=== PATIENT | male | born 1960 | race Caucasian/White ===

== ENCOUNTER 2023-08-14 06:49 | Inpatient (IN) ==
--- NOTE | 2023-07-27 16:32 | PAT Medication Instructions ---
Medication Instructions Date of Service July 27, 2023 Home Medications amlodipine 10 mg tablet 10 mg PO QAM dextroamphetamine-amphetamine ER 15 mg 24hr capsule,extend release 15 mg PO QAM gabapentin 300 mg capsule 900 mg PO TID lisinopril 40 mg tablet 40 mg PO QAM omeprazole 20 mg capsule,delayed release 20 mg PO QAM pravastatin 20 mg tablet 20 mg PO HS tamsulosin 0.4 mg capsule 0.8 mg PO QAM testosterone 100 mg/mL intramuscular suspension 200 mg IM UD Continue as directed testosterone 100 mg/mL intramuscular suspension 200 mg IM UD DO NOT take the morning of surgery dextroamphetamine-amphetamine ER 15 mg 24hr capsule,extend release 15 mg PO QAM lisinopril 40 mg tablet 40 mg PO QAM Take morning of surgery With a small sip of water, OTHERWISE NOTHING TO EAT OR DRINK AFTER MIDNIGHT: amlodipine 10 mg tablet 10 mg PO QAM gabapentin 300 mg capsule 900 mg PO TID omeprazole 20 mg capsule,delayed release 20 mg PO QAM tamsulosin 0.4 mg capsule 0.8 mg PO QAM Take evening before surgery gabapentin 300 mg capsule 900 mg PO TID pravastatin 20 mg tablet 20 mg PO HS Other Notes If you have any questions please call us at [phone] or [phone] or [phone] or [phone]
--- NOTE | 2023-07-31 12:47 | Anesthesiology Consultation ---
Date of Service July 31, 2023 Assessment & Plan (1) Encounter for pre-operative examination: Infectious disease screening: Per assessment on 07/31/23: No known infectious disease contacts or current infectious disease symptoms. No noted Covid positive test result in past 90 days. Chart Review Chart Review: Acceptable Risk for Surgery and Patient seen in Pre Admission Testing Teaching & Discussion Pre-Anesthesia Teaching/Discussion Notes: Instructed NPO after midnight before surgery,except medications with 15 cc of water. Medication instructions provided according to the PAT guidelines. History Surgery Operation Date: 08/14/23 07:45 Proposed Procedures p L2-L5 Decompression and Fusion with Spinal Cord Monitoring - Franck Nicholson DO Height/Weight Height: 5 ft 11 in Weight: 118.8 kg Allergies Allergy/AdvReac Type Severity Reaction Status Date / Time No Known Allergies Allergy Verified 07/24/23 13:01 Medications Home Medications Medication Instructions Recorded Confirmed Last Taken amlodipine 10 mg tablet 10 mg PO QAM 07/24/23 07/24/23 Unknown dextroamphetamine-amphetamine ER 15 mg PO QAM 07/24/23 07/24/23 Unknown 15 mg 24hr capsule,extend release gabapentin 300 mg capsule 900 mg PO TID 07/24/23 07/24/23 Unknown lisinopril 40 mg tablet 40 mg PO QAM 07/24/23 07/24/23 Unknown omeprazole 20 mg capsule,delayed 20 mg PO QAM 07/24/23 07/24/23 Unknown release pravastatin 20 mg tablet 20 mg PO HS 07/24/23 07/24/23 Unknown tamsulosin 0.4 mg capsule 0.8 mg PO QAM 07/24/23 07/24/23 Unknown testosterone 100 mg/mL 200 mg IM UD 07/24/23 07/24/23 Unknown intramuscular suspension Past Medical History Medical History ADHD GERD (gastroesophageal reflux disease) Hyperlipidemia Hypertension Exercise / Class Metabolic Activity II 4-5 Yardwork/Stairs/Walk up hill (one FS (no CP, no SOB)) Past Surgical History Surgical History Fusion of spine L2-L4; x2 surgery History of cholecystectomy History of colonoscopy Past Anesthesia History No Hx of Anesthesia Complications and No Family Hx of Anesthesia Complications History of PONV No Hx of PONV Social History Smoking Status: Never smoker Do You Dip or Chew Tobacco: Yes (1 can/day- advised none DOS) Hx Alcohol Use: Yes alcohol intake frequency: holidays/special occasions only Hx Substance Use: No substance use type: does not use Review of Systems Patient denies chest pain, shortness of breath, dyspnea on exertion, fever, chills, cough, wheezing, palpitations. Physical Exam Vital Signs VITALS BP 118/70 P 102 TEMP 98.3 SP02 95%RA RESP 18 PHYSICAL Mildly decreased cervical extension range of motion. Full TMJ range of motion. TMD 3 finger breaths Mallampati Score 3 Dentition: upper/lower dentures Lungs: clear throughout to auscultation Cardiac: regular rate and rhythm, no murmurs noted Spine: normal Carotid arteries: negative bruit Extremities: no LE edema Large, thin jang- advised patient recommendation to clean/trim jang short prior to surgery from anesthesia perspective- patient refusing. Reviewed with Dr. Alarcon- patient advised that ultimate decision regarding jang management to be made by anesthesiologist DOS. Lab Results Anesthesia Preop Results Results Anesthesia Widget: WBC 7.96 K/ul (4.8-10.8) 07/31/23 Hgb 16.3 g/dl (14.0-18.0) 07/31/23 Hct 46.4 % (42.0-52.0) 07/31/23 Plt 253 K/uL (130-400) 07/31/23 Na 136 mmol/L (136-145) 07/31/23 K 4.1 mmol/L (3.5-5.1) 07/31/23 Cl 104 mmol/L (98-107) 07/31/23 CO2 25 mmol/L (21-32) 07/31/23 BUN 16 mg/dl (6-23) 07/31/23 Creat 1.15 mg/dl (0.6-1.4) 07/31/23 Glucose Level 107 mg/dl (70-99(Fasting)) H 07/31/23 PT 10.6 Seconds (9.0-12.0) 07/31/23 PTT 29.0 Seconds (21.0-31.0) 07/31/23 INR 1.0 (0.9-1.1) 07/31/23 Urine Color Yellow 07/31/23 Urine Appearance Clear (Clear) 07/31/23 Urine pH 6.0 (4.5-7.5) 07/31/23 Urine Specific Darby 1.019 (1.000-1.030) 07/31/23 Urine Protein Negative (Negative) 07/31/23 Urine Glucose (UA) Negative (Negative) 07/31/23 Urine Ketones Negative (Negative) 07/31/23 Urine Blood Negative (Negative) 07/31/23 Urine Nitrite Negative (Negative) 07/31/23 Urine Bilirubin Negative (Negative) 07/31/23 Urine Urobilinogen Negative (Negative) 07/31/23 Urine Leukocyte Esterase Negative (Negative) 07/31/23 Blood Type A Positive 07/31/23 Antibody Screen NEGATIVE 07/31/23 Testing Electrocardiogram Date: 07/31/23 ST at 101bpm. "Otherwise normal ECG" Chest X-Ray Date: 07/31/23 FINDINGS: Lung volumes are normal. Lungs are clear. There is no pneumothorax or pleural effusion. Cardiac size is normal. Mediastinal contours are normal. There is no evidence for pulmonary edema. IMPRESSION: No acute cardiopulmonary findings.
[~2023-08-14 06:49] MED LIST: ACETAMINOPHEN 500 MG TAB PO SCH; CeleBREX 200 MG CAP PO SCH; GABAPENTIN 600 MG DOSE PO SCH; LR 15ML/HR IV SCH; LR 60ML/HR IV SCH
[2023-08-14] MEDS ORDERED: LIDOCAINE 2% 2 ML VIAL/AMP(20MG/ML) INFIL ONE (08:25)
[2023-08-14] MEDS ORDERED: ROCURONIUM BROMIDE 10 MG/ML 5 ML VIAL IV ONE ×3 (08:25→11:55)
[2023-08-14] MEDS ORDERED: PROPOFOL IV EMULSION 10 MG/ML 20 ML VIAL IV ONE (08:25)
[2023-08-14] MEDS ORDERED: fentaNYL citrate PF 100 MCG/2 ML VIAL ONE ×2 (08:25→11:14)
[2023-08-14] MEDS ORDERED: ONDANSETRON INJ 2 MG/ML 2 ML VIAL ONE (08:25)
[2023-08-14] MEDS ORDERED: MIDAZOLAM HCL 1 MG/ML 2ML VIAL ONE (08:25)
[2023-08-14] MEDS ORDERED: DEXAMETHASONE SOD INJ 4 MG/ML VIAL ONE (08:25)
--- NOTE | 2023-08-14 09:03 | History & Physical Bridge Note ---
Date of Service August 14, 2023 History & Physical Bridge Note I have examined the patient, reviewed the History & Physical and in the interval since the performance of the History & Physical I have noted the following changes of clinical significance: no changes noted
--- NOTE | 2023-08-14 09:04 | History & Physical Report ---
Date of Service August 14, 2023 Assessment & Plan (1) Neurogenic claudication due to lumbar spinal stenosis: Plan: L2-L5 decompression and fusion History of Present Illness Chief Complaint: Back and bilateral leg pain Primary Care Provider: Patricia Hernandez This is a 63-year-old male presents with chronic persistent back and bilateral leg pain after failing extensive course of nonoperative care is here for surgical invention. Allergies Allergy/AdvReac Type Severity Reaction Status Date / Time No Known Allergies Allergy Verified 08/14/23 07:44 Home Medications Medication Instructions Recorded Confirmed Type amlodipine 10 mg tablet 10 mg PO QAM 07/24/23 08/14/23 History dextroamphetamine-amphetamine ER 15 mg PO QAM 07/24/23 08/14/23 History 15 mg 24hr capsule,extend release (Adderall XR) gabapentin 300 mg capsule 900 mg PO TID 07/24/23 08/14/23 History lisinopril 40 mg tablet 40 mg PO QAM 07/24/23 08/14/23 History omeprazole 20 mg capsule,delayed 20 mg PO QAM 07/24/23 08/14/23 History release pravastatin 20 mg tablet 20 mg PO HS 07/24/23 08/14/23 History tamsulosin 0.4 mg capsule 0.8 mg PO QAM 07/24/23 08/14/23 History testosterone 100 mg/mL 200 mg IM UD 07/24/23 08/14/23 History intramuscular suspension Past Med/Surg History Medical History ADHD GERD (gastroesophageal reflux disease) Hyperlipidemia Hypertension Surgical History Fusion of spine L2-L4; x2 surgery History of cholecystectomy History of colonoscopy Social History Smoking Status: Never smoker Tobacco Type: Smokeless Tobacco (Dip or Chew) Second Hand Exposure: No; Do You Dip or Chew Tobacco: Yes (1 can/day- advised none DOS); Tobacco Cessation Education Requested by Patient: No Hx Alcohol Use: Yes Hx Substance Use: No Preferred Language: Pashto 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
[2023-08-14] MEDS ORDERED: ceFAZolin 330 MG/ML 1 GM VIAL ONE (09:16)
[2023-08-14] MEDS ORDERED: BUPIVACAINE/EPINEPHRINE 0.25% 1:200,000 30 ML VIAL ONE (09:17)
[2023-08-14] MEDS ORDERED: ATROPINE SULFATE 0.1 MG/ML 10ML SYR IV PRN (09:29)
[2023-08-14] MEDS ORDERED: ePHEDrine sulfate 50 MG/ML AMP IV PRN (09:29)
[2023-08-14] MEDS ORDERED: ONDANSETRON INJ 2 MG/ML 2 ML VIAL IV PRN ×2 (09:29→14:22)
[2023-08-14] MEDS: ceFAZolin 2000MG 2,000 MG/15 ML SYR IV SCH ×3 (09:36→17:52)
[2023-08-14] MEDS ORDERED: SUCCINYLCHOLINE CHLORIDE 20 MG/ML 10 ML VIAL IV ONE (10:46)
[2023-08-14] MEDS ORDERED: HYDROmorphone INJ 2 MG/ML SYR/VIAL ONE (12:15)
[2023-08-14] MEDS ORDERED: FLOSEAL HEMOSTATIC MATRIX 10ML TOP ONE (12:44)
[2023-08-14] MEDS ORDERED: SUGAMMADEX SODIUM 200 MG/2 ML VIAL IV ONE (12:45)
--- NOTE | 2023-08-14 12:53 | Operative Report ---
Post Operative Report Pre & Post Diagnosis Operation Date: 08/14/23 08:55 Pre-Op Diagnosis: Lumbar spinal stenosis with neurogenic claudication Lumbar spondylolisthesis L4-5 Morbid obesity Post-Op Diagnosis: Same I identified the patient and participated in the time-out.: Yes Procedure Operation Date: 08/14/23 08:55 Actual Procedures #1 lumbar decompression bilateral medial facetectomies and foraminotomies L1-L2, L2-L3, L3-L4 and L4-5. #2 posterior spinal fusion L2-L5. #3 placement closely posterior segmental instrumentation L2-L5. #4 interbody fusion L2-L3, L3-L4 and L4-5. #5 placement spiral 10 x 26 mm at L2-L3, 13 x 26 mm at L3-L4 and 15 x 26 mm at L4-L5 x2. #6 placement locally harvested morselized autograft and posterior gutters. #7 placement of I factor interbody space and infuse collagen sponge combined with magnetized in the posterior lateral gutters. Surgeon Franck Nicholson, DO [employer] Glenna Platt Estimated Blood Loss 900 Findings See Below The patient is 5 foot 11 weighing over 119 kg with a BMI in excess of 36. Patient body mass did contribute to significant technical difficulty required deepest retractors longer instruments in order to perform his procedure. this c ombined with an EBL of greater than 900 cc at least 50% increased operative time. Specimens None Indications This is a 63-year-old male who presents above-mentioned diagnosis after failed course of nonoperative care is here for surgical invention. Description of Procedure Patient was met with identified informed consent obtained. Patient was then taken to the operative suite underwent patient placed in a prone position inject table top Michael frame. Opening promises well-padded eyes inspected to ensure no external precipice spine. This point the lumbar spine was prepped and draped in a sterile fashion. Sharp dissection with assistance of Bovie cautery form down to and exposing the lamina transverse processes of L2-L3 L4-5 bilaterally. From caudal cephalad fashion complete laminectomy of L4 L3 L2 partial laminectomy of L1 was performed including bilateral male facetectomies and foraminotomies addressing severe spinal stenosis. Pedicle screws were then placed in L2 L3-L4-L5 and S1 levels bilaterally with assistance of fluoroscopy and appropriately sized sue contoured and placed. By way of transforaminal approach on the right discectomy of L4-5 was performed endplates guarded to subcortical and bone and a 15 x 26 mm Spira cage with I factor tapped in position. I then proceeded L4-5 on the left completed discectomy through a transforaminal approach and curetted the endplates to subcortical bleeding bone placing a second 15 x 26 mm prior cage with I factor into position. Then proceeded to L3-L4 and by way of transforaminal approach right complete discectomy performed endplates guarded to subcortical pain bone and a 13 x 26 mm Spira cage with I factor tapped in position. Lastly I proceeded to L2-L3 and again by way of a transforaminal approach right complete discectomy performed endplates guarded to subcortical mean bone and a 10 x 26 mm prior cage with I factor tapped position. The rods were then locked in final position bilaterally. The transverse processes of L2-L3 L4-5 burred to subcortical bone. Infuse collagen sponge combined with mag toss and locally harvested morselized allograft placed in the posterior gutters. 15 round ARLEY drain inserted. The incision was then closed with 1 Vicryl to fascia 2-0 Vicryl subcutaneously and 4 Monocryl for final closure. Steri-Strips sterile dressings placed. Patient waken taken PACU stable condition. Please note spinal cord monitoring was utilized at the procedure no changes noted. Lastly Glenna Platt was present at the entire surgery involved the patient positioning complex portion of the surgery and fashion closure. I attest to the content of the Intraoperative Record and any orders documented therein. Any exceptions are noted below.
[2023-08-14] MEDS: fentaNYL citrate PF 100 MCG/2 ML VIAL IV PRN ×2 (13:40→13:45)
--- NOTE | 2023-08-14 14:00 | Anesthesiology Progress Note ---
Date of Service August 14, 2023 Anesthesia Post Procedure Vital Signs Vital Signs: Temp Pulse Pulse Resp BP Pulse Ox O2 Del Method 08/14/23 13:30 83 10 L 119/47 L 97 Oxymask 08/14/23 13:20 86 13 124/81 96 Oxymask 08/14/23 13:10 97.0 F L 100 H 10 L 141/86 H 99 Oxymask 08/14/23 07:46 98.2 F 91 H 20 136/90 94 Room Air O2 Flow Rate 08/14/23 13:30 1 08/14/23 13:20 3 08/14/23 13:10 6 08/14/23 07:46 Pain Intensity Back: Pain Intensity: 8 Bilateral Hip: Pain Intensity: 8 Transfer of Care Handoff Completed per policy Notes Mental Status: alert / awake / arousable and participated in evaluation Patient Amnestic to Procedure: Yes Nausea / Vomiting: adequately controlled Pain: adequately controlled Airway Patency, RR, SpO2: stable & adequate BP & HR: stable & adequate Hydration State: stable & adequate Anesthetic Complications: no major complications apparent and Pt Satisfied with anesthetic care
[2023-08-14] MEDS ORDERED: LORazepam 0.5 MG TAB PO PRN (14:22)
[2023-08-14] MEDS ORDERED: SOD PHOSPHATE/SOD BIPHOSPHATE ENEMA 132 ML BTL PR PRN (14:22)
[2023-08-14] MEDS ORDERED: HYDROmorphone INJ 0.5 MG/0.5 ML SYR IV PRN (14:22)
[2023-08-14] MEDS ORDERED: ALUMINUM/MAGNESIUM SUSP 30 ML UDC PO PRN (14:22)
[2023-08-14] MEDS ORDERED: MAGNESIUM HYDROXIDE SUSP 30 ML UDC PO PRN (14:22)
[2023-08-14] MEDS ORDERED: DO NOT ADMINISTER PNEUMOCOCCAL VACCINE PRN (14:22)
[2023-08-14] MEDS ORDERED: DO NOT ADMINISTER FLU VACCINE PRN (14:22)
[2023-08-14] MEDS ORDERED: ONDANSETRON 4 MG OD TAB PO PRN (14:22)
[2023-08-14] MEDS ORDERED: LORazepam 2 MG/1 ML VIAL IV PRN (14:22)
[2023-08-14] MEDS ORDERED: METOCLOPRAMIDE HCL INJ 5 MG/ML 2 ML VIAL IV PRN (14:22)
[2023-08-14] MEDS ORDERED: ACETAMINOPHEN 1,000 MG/100 ML VIAL IV PRN (14:22)
[2023-08-14] MEDS ORDERED: diphenhydrAMINE Capsule 25 MG CAP PO PRN (14:22)
[2023-08-14] MEDS ORDERED: traMADol HCL 50 MG TABLET PO PRN (14:22)
[2023-08-14] MEDS ORDERED: PROMETHAZINE HCL 12.5 MG in SODIUM CHLORIDE 0.9% 50 ML IV PRN (14:22)
[2023-08-14] MEDS ORDERED: HYDROmorphone INJ 1 MG/ML SYRINGE IV PRN (14:22)
[2023-08-14] MEDS ORDERED: NALOXONE HCL 0.4 MG/1 ML VIAL/CARP IV PRN (14:22)
[2023-08-14] MEDS ORDERED: bisacodyL 10 MG SUPP PR PRN (14:22)
[2023-08-14] MEDS ORDERED: FAMOTIDINE 20 MG TAB PO PRN (14:22)
[2023-08-14] MEDS ORDERED: hydrOXYzine HCl 25 MG TAB PO PRN (14:22)
[2023-08-14] MEDS ORDERED: ACETAMINOPHEN 500 MG TAB PO PRN (14:22)
[2023-08-14] MEDS: LACTATED RINGER'S 1,000 ML IV SCH ×2 (14:53→19:33)
--- NOTE | 2023-08-14 15:32 | Hospitalist Consultation ---
Date of Consultation August 14, 2023 Assessment & Plan (1) S/P spinal surgery: (2) Neurogenic claudication due to lumbar spinal stenosis: This is a 63yo M with a PMH of HTN, HLD, GERD, BPH and other medical problems who is POD#0 s/p lumbar decompression bilateral medial facetectomies and foraminotomies L1-L2, L2-L3, L3-L4 and L4-5 and posterior spinal fusion L2-L5 by Dr. Nicholson. POD#0 s/p lumbar decompression bilateral medial facetectomies and foraminotomies L1-L2, L2-L3, L3-L4 and L4-5 and posterior spinal fusion L2-L5 by Dr. Nicholson. Per ortho for pain control, wound care, anticoagulation and activities Monitor H&H (EBL 900ml, pre-op hgb 16.3) Continue incentive spirometry, PT/OT when appropriate (3) Hypertension: Chronic, stable. Continue amlodipine, lisinopril with hold parameters (4) Hyperlipidemia: Chronic, stable. Continue statin (5) BPH (benign prostatic hyperplasia): Continue Flomax (6) Smokeless tobacco use: Uses 1 can per day. Counseled on cessation. Declines nicotine patch (7) ADHD: Continue Adderall DVT Ppx: SCDs PCP: David Dispo: Per primary service Patient seen in collaboration with Dr. Pruitt. Please see addendum. Supervising Physician Co-Signing Physician Notes Patient seen and examined Reports surgical site pain only On exam, General: No distress Eyes: PERRL, conjunctivae normal, not pale, anicteric sclerae, EOM intact bilaterally ENMT: External ear and nose normal, oropharynx normal Respiratory: Normal respiratory effort, no respiratory distress, lungs clear to auscultation, no crackles and no wheezes Cardiovascular: RRR S1 S2 Gastrointestinal (Abdomen): Abdomen is not distended, soft, non-tender to palpation, no guarding, no palpable hepatosplenomegaly, normal bowel sounds Musculoskeletal: No pedal edema. Clean dressing over surgical site, drain in situ Genitourinary: Feliciano in situ Neurologic: Alert and oriented x 3, moves extremities Psychiatric: Euthymic affect Pain management PT/OT Check Hb and BMP in AM Resume home meds History of Present Illness Reason for Consultation: post op med mgmt Attending Physician: Franck M Lyn, DO History of Present Illness This is a 63yo M with a PMH of HTN, HLD, GERD, BPH, smokeless tobacco use and other medical problems who is POD#0 s/p lumbar decompression bilateral medial facetectomies and foraminotomies L1-L2, L2-L3, L3-L4 and L4-5 and posterior spinal fusion L2-L5 by Dr. Nicholson.Having incisional discomfort, states it is 10/10. Some numbness and paresthesias in R thigh, similar to previous pain. No nausea or vomiting. No F/C, headache, lightheadedness, CP, SOB, abdominal pain. Feliciano catheter in place. No post-op flatus. Follows with Dr. Hernandez in [place] for primary care. Allergies Allergy/AdvReac Type Severity Reaction Status Date / Time No Known Allergies Allergy Verified 08/14/23 07:44 Home Medications Medication Instructions Recorded Confirmed Type amlodipine 10 mg tablet 10 mg PO QAM 07/24/23 08/14/23 History dextroamphetamine-amphetamine ER 15 mg PO QAM 07/24/23 08/14/23 History 15 mg 24hr capsule,extend release (Adderall XR) gabapentin 300 mg capsule 900 mg PO BID 07/24/23 08/14/23 History lisinopril 40 mg tablet 40 mg PO QAM 07/24/23 08/14/23 History omeprazole 20 mg capsule,delayed 20 mg PO QAM 07/24/23 08/14/23 History release pravastatin 20 mg tablet 20 mg PO HS 07/24/23 08/14/23 History tamsulosin 0.4 mg capsule 0.8 mg PO QAM 07/24/23 08/14/23 History testosterone 100 mg/mL 200 mg IM UD 07/24/23 08/14/23 History intramuscular suspension Patient History Medical History ADHD BPH (benign prostatic hyperplasia) GERD (gastroesophageal reflux disease) Hyperlipidemia Hypertension Surgical History Fusion of spine L2-L4; x2 surgery History of cholecystectomy History of colonoscopy Family History Other Adopted Social History Smoking Status: Never smoker Tobacco Type: Smokeless Tobacco (Dip or Chew) Second Hand Exposure: No; Do You Dip or Chew Tobacco: Yes (1 can/day- advised none DOS); Tobacco Cessation Education Requested by Patient: No Hx Alcohol Use: Yes Alcohol type: beer, wine and hard liquor Hx Substance Use: No Preferred Language: [place] Helenian Communication Ability: Effective 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 Physical Exam Physical Exam: Please see Dr. Pruitt's addendum for physical exam. Results & Data Results & Data Vital Signs (Past 12 Hours) Vital Signs Temp Pulse Pulse Resp BP Pulse Ox O2 Del Method 08/14/23 15:19 37.0 C 89 16 133/77 97 Nasal Cannula 08/14/23 14:52 36.8 C 84 16 109/70 96 Nasal Cannula 08/14/23 14:20 Nasal Cannula 08/14/23 14:22 36.6 C 84 16 117/77 96 Room Air 08/14/23 14:00 36.6 C 82 14 126/73 95 Nasal Cannula 08/14/23 13:50 85 8 L 124/76 93 Nasal Cannula 08/14/23 13:40 83 8 L 94/53 L 92 Nasal Cannula 08/14/23 13:30 83 10 L 119/47 L 97 Oxymask 08/14/23 13:20 86 13 124/81 96 Oxymask 08/14/23 13:10 36.1 C L 100 H 10 L 141/86 H 99 Oxymask 08/14/23 07:46 36.8 C 91 H 20 136/90 94 Room Air O2 Flow Rate 08/14/23 15:19 3 08/14/23 14:52 3 08/14/23 14:20 3 08/14/23 14:22 3 08/14/23 14:00 4 08/14/23 13:50 4 08/14/23 13:40 4 08/14/23 13:30 1 08/14/23 13:20 3 08/14/23 13:10 6 08/14/23 07:46 Laboratory Results Pre-op hgb 16.3
[2023-08-14] MEDS: oxyCODONE HCL IR 5 MG TAB (IMMEDIATE RELEASE) PO PRN ×2 (16:09→20:30)
--- NOTE | 2023-08-14 17:45 | Fluoroscopy Report ---
INTRAOPERATIVE RADIOGRAPHS CLINICAL HISTORY: Lumbar spinal fusion surgery. Fluoro time: 31 seconds Ka,r: 22.99 mGy FINDINGS: 3 spot fluoroscopic views of the lumbar spine are presented. There is evidence of multileve l lumbar discectomy with laminectomy and posterior fusion. This is reportedly at L2-L5. Interpedicula r screws are present at all levels. The orthopedic hardware appears intact. Additional hardware is li fannie present in the sacrum. IMPRESSION: Intraoperative images from extensive/multilevel lumbar spinal fusion surgery as above. Electronically signed by: Adan Nicolas M.D. 08/14/2023 5:44 PM
[2023-08-14] MEDS: GABAPENTIN 300 MG CAP PO SCH ×2 (17:50→20:38)
[2023-08-14] MEDS: DOCUSATE SODIUM/SENNA 50/8.6MG TAB PO SCH (20:29)
[2023-08-14] MEDS: PRAVASTATIN SOD 20 MG TAB PO SCH (20:38)
[2023-08-15] MEDS: ceFAZolin 2000MG 2,000 MG/15 ML SYR IV SCH (02:18)
[2023-08-15] MEDS: oxyCODONE HCL IR 5 MG TAB (IMMEDIATE RELEASE) PO PRN ×2 (06:01→16:58)
[2023-08-15] MEDS: POLYETHYLENE (MIRALAX) 17 GM PACK PO SCH ×3 (06:01→16:55)
[2023-08-15 06:51] LABS: Basophils # (auto) 0.03 K/uL (0.00-0.20); Basophils % (auto) 0.2 %; Hematocrit (blood only) 41.9 % (42.0-52.0); Hemoglobin 14.2 g/dl (14.0-18.0); Immature Granulocytes # (auto) 0.06 K/uL (0.01-0.20); Immature Granulocytes % (auto) 0.4 %; Lymphocytes # (auto) 1.67 K/uL (1.20-3.40); Lymphocytes % (auto) 10.7 %; Mean Corpuscular Hemoglobin 31.4 pg (25.0-34.0); Mean Corpuscular Hgb Conc 33.9 g/dL (32.0-36.0); Mean Corpuscular Volume 92.7 fL (80.0-100.0); Mean Platelet Volume 10.1 fL (9.4-12.4); Monocytes # (auto) 1.31 K/uL (0.11-0.59); Monocytes % (auto) 8.4 %; Neutrophils # (auto) 12.52 K/uL (1.40-6.50); Neutrophils % (auto) 80.3 %; Platelet Count 233 K/uL (130-400); RDW Coefficient of Variation 12.3 % (11.5-14.5); RDW Standard Deviation 42.1 fL (36.4-46.3); Red Blood Count 4.52 M/uL (4.70-6.10); White Blood Count 15.59 K/ul (4.8-10.8)
[2023-08-15 07:23] LABS: BUN Creatinine Ratio 10.7 (10-20); Calcium 9.1 mg/dl (8.6-10.3); Creatinine Clr Calc Pharmacy 81.5 ml/min; Est GFR (African American) 72.7 ml/min; Est GFR (Non-African American) 62.7 ml/min; Potassium 4.5 mmol/L (3.5-5.1)
[2023-08-15] MEDS: GABAPENTIN 300 MG CAP PO SCH ×3 (08:24→20:26)
[2023-08-15] MEDS: dexAMETHasone 6 MG in SYRINGE 0 ML IV SCH (08:24)
[2023-08-15] MEDS: TAMSULOSIN HCL 0.4 MG CAP PO SCH (08:25)
[2023-08-15] MEDS: amLODIPine BESYLATE 5 MG TAB PO SCH (08:26)
[2023-08-15] MEDS: lisinopril 40 MG TAB PO SCH (08:26)
[2023-08-15] MEDS: PANTOprazole 40 MG TAB PO SCH (08:26)
--- NOTE | 2023-08-15 09:23 | Hospitalist Progress Note ---
Date of Service August 15, 2023 Assessment & Plan (1) S/P spinal surgery: (2) Neurogenic claudication due to lumbar spinal stenosis: Plan: This is a 63yo M with a PMH of HTN, HLD, GERD, BPH and other medical problems who is POD#1 s/p lumbar decompression bilateral medial facetectomies and foraminotomies L1-L2, L2-L3, L3-L4 and L4-5 and posterior spinal fusion L2-L5 by Dr. Nicholson. POD#1 s/p lumbar decompression bilateral medial facetectomies and foraminotomies L1-L2, L2-L3, L3-L4 and L4-5 and posterior spinal fusion L2-L5 by Dr. Nicholson. Per ortho for pain control, wound care, anticoagulation and activities Monitor H&H (EBL 900ml, pre-op hgb 16.3) -currently stable Continue incentive spirometry, PT/OT when appropriate (3) Hypertension: Plan: Chronic, stable. Continue amlodipine, lisinopril with hold parameters (4) Hyperlipidemia: Plan: Chronic, stable. Continue statin (5) BPH (benign prostatic hyperplasia): Plan: Continue Flomax (6) Smokeless tobacco use: Plan: Uses 1 can per day. Counseled on cessation. Declines nicotine patch (7) ADHD: Plan: Continue Adderall DVT Ppx: SCDs at this time PCP: David Dispo: Per primary service Thank you for this consultation. We will follow the patient with you during their hospital stay. You can reach a member of the [facility] Hospitalist Team 07/05 via the hospitalist role on tiger text. Admission and Anticipated Discharge Date Admission Date: August 14, 2023 Subjective Pt seen in the AM. States that he is tired and catching up on sleep. States he had some nausea earlier but currently resolved. Review of Systems Review of Systems: All systems reviewed & are unremarkable except as noted in Subjective Physical Exam Physical Exam: General: Alert, oriented. No acute distress Skin: No noted rashes or bruises Psych: Appropriate mood and affect Neuro: No gross deficits, laying in bed HEENT: NC/AT CV: RRR, Normal s1, s2. Resp: Breath sounds clear bilaterally, no increased effort of breathing. Abdomen: Soft, nontender, nondistended. Extremities: No edema in lower extremities bilaterally. Results & Data Results & Data Vital Signs (Past 12 Hours) Vital Signs Temp Pulse Pulse Resp BP Pulse Ox O2 Del Method 08/15/23 07:24 36.8 C 102 H 16 106/67 95 Room Air 08/15/23 02:27 36.8 C 98 H 16 111/69 94 Room Air 08/14/23 22:32 36.7 C 101 H 16 123/72 94 Room Air
[2023-08-15] MEDS: DEXTROAMPHETAMINE/AMPHETAMINE ER 5 MG CAP PO SCH (09:50)
--- NOTE | 2023-08-15 10:02 | Orthopedic Progress Note ---
Date of Service August 15, 2023 Assessment & Plan (1) Neurogenic claudication due to lumbar spinal stenosis: Plan: At this time want to continue physical therapy monitor his ARLEY output hopefully discharge home the next few days. Admission and Anticipated Discharge Date Admission Date: August 14, 2023 Subjective Back pain controlled leg pain improved Physical Exam Physical Exam: Patient is currently in bed. Is comfortable. Is for strength testing. Results & Data Vital Signs (Past 12 Hours) Vital Signs Temp Pulse Pulse Resp BP Pulse Ox O2 Del Method 08/15/23 07:24 36.8 C 102 H 16 106/67 95 Room Air 08/15/23 02:27 36.8 C 98 H 16 111/69 94 Room Air 08/14/23 22:32 36.7 C 101 H 16 123/72 94 Room Air
[2023-08-15] MEDS: PRAVASTATIN SOD 20 MG TAB PO SCH (20:26)
[2023-08-15] MEDS: DOCUSATE SODIUM/SENNA 50/8.6MG TAB PO SCH (20:26)
[2023-08-15] MEDS ORDERED: METOCLOPRAMIDE HCL INJ 5 MG/ML 2 ML VIAL IV STA (23:43)
[2023-08-16] MEDS: oxyCODONE HCL IR 5 MG TAB (IMMEDIATE RELEASE) PO PRN ×3 (01:48→21:03)
[2023-08-16 07:06] LABS: Basophils # (auto) 0.02 K/uL (0.00-0.20); Basophils % (auto) 0.1 %; Hematocrit (blood only) 36.8 % (42.0-52.0); Hemoglobin 12.5 g/dl (14.0-18.0); Immature Granulocytes # (auto) 0.09 K/uL (0.01-0.20); Immature Granulocytes % (auto) 0.5 %; Lymphocytes % (auto) 11.8 %; Mean Corpuscular Hemoglobin 31.6 pg (25.0-34.0); Mean Corpuscular Volume 93.2 fL (80.0-100.0); Mean Platelet Volume 10.6 fL (9.4-12.4); Monocytes # (auto) 1.53 K/uL (0.11-0.59); Neutrophils # (auto) 13.28 K/uL (1.40-6.50); Neutrophils % (auto) 78.6 %; Platelet Count 202 K/uL (130-400); RDW Coefficient of Variation 12.6 % (11.5-14.5); RDW Standard Deviation 43.2 fL (36.4-46.3); Red Blood Count 3.95 M/uL (4.70-6.10); White Blood Count 16.92 K/ul (4.8-10.8)
[2023-08-16 07:22] LABS: Albumin Globulin Ratio 1.4 (0.9-2); Albumin Level 3.8 gm/dl (3.4-5.0); BUN Creatinine Ratio 16.2 (10-20); Bilirubin,Total 0.3 mg/dl (0.2-1.0); Calcium 8.8 mg/dl (8.6-10.3); Creatinine Clr Calc Pharmacy 89.6 ml/min; Est GFR (African American) 81.5 ml/min; Est GFR (Non-African American) 70.3 ml/min; Globulin 2.8 gm/dl (2.5-4.0); Magnesium 2.3 mg/dl (1.7-2.4); Phosphorus 2.8 mg/dl (2.5-4.9); Potassium 4.5 mmol/L (3.5-5.1); Total Protein 6.6 gm/dl (6.0-8.3)
[2023-08-16] MEDS: amLODIPine BESYLATE 5 MG TAB PO SCH (08:15)
[2023-08-16] MEDS: dexAMETHasone 6 MG in SYRINGE 0 ML IV SCH (08:15)
[2023-08-16] MEDS: lisinopril 40 MG TAB PO SCH (08:16)
[2023-08-16] MEDS: GABAPENTIN 300 MG CAP PO SCH ×3 (08:16→21:03)
[2023-08-16] MEDS: TAMSULOSIN HCL 0.4 MG CAP PO SCH (08:17)
[2023-08-16] MEDS: PANTOprazole 40 MG TAB PO SCH (08:17)
[2023-08-16] MEDS: DEXTROAMPHETAMINE/AMPHETAMINE ER 5 MG CAP PO SCH (08:23)
--- NOTE | 2023-08-16 08:34 | Orthopedic Progress Note ---
Date of Service August 16, 2023 Assessment & Plan (1) Neurogenic claudication due to lumbar spinal stenosis: Plan: This time continue physical therapy monitor his ARLEY output anticipate discharge home tomorrow. Admission and Anticipated Discharge Date Admission Date: August 14, 2023 Subjective Back pain controlled leg pain improved Physical Exam Physical Exam: Patient is in the chair at the bedside. Is constricted testing. Appears comfortable. Results & Data Vital Signs (Past 12 Hours) Vital Signs Temp Pulse Resp BP Pulse Ox O2 Del Method 08/16/23 07:59 37.0 C 95 H 17 116/61 96 Room Air
--- NOTE | 2023-08-16 15:48 | Hospitalist Progress Note ---
Date of Service August 16, 2023 Assessment & Plan (1) S/P spinal surgery: (2) Neurogenic claudication due to lumbar spinal stenosis: Plan: This is a 63yo M with a PMH of HTN, HLD, GERD, BPH and other medical problems who is POD#2 s/p lumbar decompression bilateral medial facetectomies and foraminotomies L1-L2, L2-L3, L3-L4 and L4-5 and posterior spinal fusion L2-L5 by Dr. Nicholson. POD#2 s/p lumbar decompression bilateral medial facetectomies and foraminotomies L1-L2, L2-L3, L3-L4 and L4-5 and posterior spinal fusion L2-L5 by Dr. Nicholson. Per ortho for pain control, wound care, anticoagulation and activities Monitor H&H (EBL 900ml, pre-op hgb 16.3) -currently stable, continue to monitor Continue incentive spirometry, PT/OT when appropriate (3) Sinus tachycardia: Plan: Noted elevation in HR, persistently from 08/14. EKG done on 07/31 noted sinus tachycardia Repeat EKG ordered with echo for further evaluation. Question of dehydration, will start on very gentle fluids Continue to monitor HR (4) Hypertension: Plan: Chronic, stable. Continue amlodipine, lisinopril with hold parameters (5) Hyperlipidemia: Plan: Chronic, stable. Continue statin (6) BPH (benign prostatic hyperplasia): Plan: Continue Flomax (7) Smokeless tobacco use: Plan: Uses 1 can per day. Counseled on cessation. Declines nicotine patch (8) ADHD: Plan: Continue Adderall DVT Ppx: SCDs, started on Lovenox PCP: David Dispo: Per primary service Thank you for this consultation. We will follow the patient with you during their hospital stay. You can reach a member of the [facility] Hospitalist Team 07/05 via the hospitalist role on tiger text. Admission and Anticipated Discharge Date Admission Date: August 14, 2023 Subjective Pt seen in the AM. States that he has never felt better, pain controlled. Notes he had a BM, also had hiccups relieved with home remedy of sugar. Asking for a leonardo mist or alva oksana. Review of Systems Review of Systems: All systems reviewed & are unremarkable except as noted in Subjective Physical Exam Physical Exam: General: Alert, oriented. No acute distress Skin: No noted rashes or bruises Psych: Appropriate mood and affect Neuro: No gross deficits, laying in bed HEENT: NC/AT CV: RRR, Normal s1, s2. Resp: Breath sounds clear bilaterally, no increased effort of breathing. Abdomen: Soft, nontender, nondistended. Extremities: No edema in lower extremities bilaterally. Results & Data Results & Data Vital Signs (Past 12 Hours) Vital Signs Temp Pulse Resp BP Pulse Ox O2 Del Method 08/16/23 14:57 103/54 L 08/16/23 14:48 36.8 C 96 H 17 96/58 L 96 Room Air 08/16/23 07:59 37.0 C 95 H 17 116/61 96 Room Air
[2023-08-16] MEDS: PRAVASTATIN SOD 20 MG TAB PO SCH (21:03)
[2023-08-16] MEDS: DOCUSATE SODIUM/SENNA 50/8.6MG TAB PO SCH (21:03)
[2023-08-17] MEDS ORDERED: SODIUM CHLORIDE 0.9% 1,000 ML IV SCH (02:15)
[2023-08-17] MEDS: oxyCODONE HCL IR 5 MG TAB (IMMEDIATE RELEASE) PO PRN ×2 (02:40→12:17)
[2023-08-17] MEDS ORDERED: ENOXAPARIN INJ 40 MG/0.4 ML SYR SQ SCH (06:00)
[2023-08-17 06:26] LABS: Basophils # (auto) 0.02 K/uL (0.00-0.20); Basophils % (auto) 0.1 %; Hematocrit (blood only) 38.1 % (42.0-52.0); Hemoglobin 13.2 g/dl (14.0-18.0); Immature Granulocytes # (auto) 0.12 K/uL (0.01-0.20); Immature Granulocytes % (auto) 0.7 %; Lymphocytes # (auto) 2.67 K/uL (1.20-3.40); Lymphocytes % (auto) 16.1 %; Mean Corpuscular Hemoglobin 31.5 pg (25.0-34.0); Mean Corpuscular Hgb Conc 34.6 g/dL (32.0-36.0); Mean Corpuscular Volume 90.9 fL (80.0-100.0); Mean Platelet Volume 10.4 fL (9.4-12.4); Monocytes # (auto) 1.23 K/uL (0.11-0.59); Monocytes % (auto) 7.4 %; Neutrophils # (auto) 12.57 K/uL (1.40-6.50); Neutrophils % (auto) 75.7 %; Platelet Count 239 K/uL (130-400); RDW Coefficient of Variation 12.5 % (11.5-14.5); RDW Standard Deviation 41.1 fL (36.4-46.3); Red Blood Count 4.19 M/uL (4.70-6.10); White Blood Count 16.61 K/ul (4.8-10.8)
[2023-08-17 06:42] LABS: Albumin Globulin Ratio 1.3 (0.9-2); Albumin Level 4.2 gm/dl (3.4-5.0); Bilirubin,Total 0.4 mg/dl (0.2-1.0); Calcium 9.4 mg/dl (8.6-10.3); Creatinine Clr Calc Pharmacy 85.7 ml/min; Est GFR (African American) 77.2 ml/min; Est GFR (Non-African American) 66.7 ml/min; Globulin 3.2 gm/dl (2.5-4.0); Magnesium 2.4 mg/dl (1.7-2.4); Phosphorus 3.5 mg/dl (2.5-4.9); Potassium 4.5 mmol/L (3.5-5.1); Total Protein 7.4 gm/dl (6.0-8.3)
[2023-08-17] MEDS: DEXTROAMPHETAMINE/AMPHETAMINE ER 5 MG CAP PO SCH (07:53)
[2023-08-17] MEDS: GABAPENTIN 300 MG CAP PO SCH (07:54)
[2023-08-17] MEDS: dexAMETHasone 6 MG in SYRINGE 0 ML IV SCH (07:54)
[2023-08-17] MEDS: amLODIPine BESYLATE 5 MG TAB PO SCH (07:55)
[2023-08-17] MEDS: TAMSULOSIN HCL 0.4 MG CAP PO SCH (07:55)
[2023-08-17] MEDS: lisinopril 40 MG TAB PO SCH (07:55)
[2023-08-17] MEDS: PANTOprazole 40 MG TAB PO SCH (07:55)
[2023-08-17] MEDS ORDERED: PERFLUTREN LIPID MICROSPHERE (DEFINITY) IV ONE (09:08)
--- NOTE | 2023-08-17 10:51 | Discharge Summary ---
Date of Service August 17, 2023 Admission HPI Per Admitting Provider This is a 63-year-old male presents with chronic persistent back and bilateral leg pain after failing extensive course of nonoperative care is here for surgical invention. Principal Diagnosis Lumbar spinal stenosis with neurogenic claudication Discharge Data Allergies Allergy/AdvReac Type Severity Reaction Status Date / Time No Known Allergies Allergy Verified 08/14/23 07:44 Consultations 08/14/23 14:22 Consult Hospitalist Routine Procedures Performed Operation Date: 08/14/23 08:55 Actual Procedures p L2-L5 Decompression and Fusion with Spinal Cord Monitoring, Application of Bone Graft, Placement of Interbody Cages - Franck Nicholson DO Ordered Studies 08/14/23 [place] lumbar spine 2-3V Routine Hospital Course (1) Neurogenic claudication due to lumbar spinal stenosis: Patient with lumbar decompression and fusion tolerated so sent to orthopedic floor postoperatively postop Dale progressed appropriately. ARLEY drain decreasing probably. Extra strength testing. Pain well controlled. Subsequent discharge home. Discharge orders instructions are on the chart for further review. Total Time Total Time Spent Total Time Spent (In Minutes): 20 minutes Discharge Plan Discharge Items Patient Disposition: Home - Self-Care Reason For Visit: Intervertebral Disc Disorders with Radiculopathy, Discharge Diagnosis: Lumbar spinal stenosis with neurogenic claudication Activity: As commented below Non-emergency contact: Primary Care Provider Call non-emergency contact if: you have any medication questions Follow-up/Referrals: Patricia Hernandez D.O. [Primary Care Provider] - 08/21/23 10:30 am Diet: Regular Addtl Attending Provider Instructions: ACTIVITY RECOMMENDATIONS: SELF CARE INSTRUCTIONS AFTER THORACIC/LUMBAR FUSIONS 1. You may walk to your tolerance. It is good exercise for your legs and back. Expect some back and intermittent leg aches and pains. 2. You may perform "counter-top" level activities (make a sandwich, floyd with a project, etc.). 3. No bending or lifting of more than 10 pounds or back twisting of any nature (roll like a log when turning in bed). 4. You may ride in a car for 20-30 minutes at a time. No driving until after your first visit with your doctor. 5. Frequent changes of position and restricting sitting to 30 minutes at a time will help limit the amount of back spasms and stiffness you may experience. 6. You may discontinue the use of ambulatory aids (cane, crutches, etc.) once your strength and confidence allow. 7. You may hash slinger the shower and let water strike your incision when you arrive home at least once daily. Do not take a tub bath, sit in a hot tub or go into a swimming pool until after your first recheck in the office. SPECIAL CARE INSTRUCTIONS: VERY IMPORTANT TO READ AND REVIEW A. Your surgical incision has been closed with a cosmetic suture under the skin that will dissolve in about 6 weeks. In 14 days, you can use a pair of clean scissors and cut the suture that is left outside of the skin at the ends of your incision. 1. The small skin tapes can be removed 7 days after surgery if they have not fallen off by that point. 2. You may keep the wound open to air as much as possible to promote healing after post-op day number 5 unless told otherwise by your doctor. 3. If you think the wound looks like it is becoming infected (redness or worsening drainage) and/or you are experiencing fever, chill or worsening back pain and muscle spasms, contact the office so that we may evaluate you as soon as possible. B. Complications are uncommon, but please contact us if you have any signs or symptoms of: 1. wound infection (fever higher than 102.5 degrees F, redness, separation of wound, drainage, or increasing pain from the incision) 2. blood clots in legs (pain, swelling, redness and warmth in legs) 3. urinary tract infection (fever higher than 102.5 degrees F, burning upon urination or increased frequency of urination) 4. nerve problems (inability to walk on your toes or heels, numbness, loss of bowel or bladder control) 5. any other symptoms that concern you C. Please call the office at if you have any concerns or questions about your operation or recovery. D. No smoking! Smoking drastically decreases the chance of a solid fusion. E. Do not take any anti-inflammatory medications (Indocin, Advil, Motrin, Aspirin, Naprosyn, etc.) as these may inhibit the chance of a solid fusion. Tylenol is okay to take for pain. MANAGING PAIN AFTER SPINAL SURGERY 1. Narcotic medication is intended for short-term use and will be provided for surgical pain. Surgical pain usually lasts for a period of 4-6 weeks. Narcotic medication includes Percocet, Vicodin, Darvocet, Tylenol #3 or Lortab. 2. Longer-term pain is more appropriately treated with non-narcotic medication such as Tylenol ES. 3. Muscle spasm is not appropriately treated with narcotics. Muscle relaxers such as Soma, Flexeril or Skelaxin can be used along with Tylenol ES. 4. Remember that we all live with some "aches and pains". This is not unusual or uncommon after an injury or as we get older. a. Back pain is expected and may include muscle spasms for 4 to 6 weeks after surgery. The pain should gradually improve. If the pain worsens for no apparent reason, please contact the office. b. Intermittent leg pain may also be experienced and should not be concerned about unless it worsens for no apparent reason. If so, please contact the office. 5. We will provide appropriate medication within the normal guidelines of their prescribed use. We will also be very cautious and aware of potential abuse and extended duration of patients' medication needs. a. Pain medications are for your comfort and to assist with sleep and rest so that the tissue can heal. They are not provided in order to return to normal activity and should not be used through the day. To do so or worsening pain at night can result from ongoing tissue damage and development of tolerance to the prescribed medicine. 6. Please allow 2-3 days to process refills. Prescriptions will not be mailed but must be picked up at the office. FOLLOW UP VISIT: Keep your scheduled follow-up appointment. Any questions, please call the office at . Pending Studies at Discharge: No Stand-Alone Forms: [facility] LastRoom, Smoking Cessation Medications and DC Order Prescriptions: New tramadol 50 mg tablet 50 mg PO Q6H PRN (Reason: pain, moderate) Qty: 30 0RF oxycodone 5 mg tablet 5 mg PO Q6H PRN (Reason: pain) Qty: 30 0RF Continued tamsulosin 0.4 mg Capsule 0.8 mg PO QAM amlodipine 10 mg Tablet 10 mg PO QAM gabapentin 300 mg Capsule 900 mg PO BID omeprazole 20 mg Capsule,Delayed Release(Dr/Ec) 20 mg PO QAM pravastatin 20 mg Tablet 20 mg PO HS lisinopril 40 mg Tablet 40 mg PO QAM dextroamphetamine-amphetamine [Adderall XR] 15 mg Capsule,Extended Release 24hr 15 mg PO QAM testosterone 100 mg/mL Suspension 200 mg IM UD Rx Instructions: every 2 weeks Discharge Orders: Discharge Order (Routine); Ordered 08/17/23 Ordered By: Franck Nicholson Admission Data Admit Date/Time: 08/14/23 12:57 Attending Provider: Franck Nicholson Admit Provider: Franck Nicholson Primary Care Provider: Patricia Hernandez Other Providers: Jahaira Vazquez; Evelyne Kirkland; Diane Santoro
--- NOTE | 2023-08-17 11:30 | Hospitalist Progress Note ---
Date of Service August 17, 2023 Assessment & Plan (1) S/P spinal surgery: (2) Neurogenic claudication due to lumbar spinal stenosis: Plan: This is a 63yo M with a PMH of HTN, HLD, GERD, BPH and other medical problems who is POD#3 s/p lumbar decompression bilateral medial facetectomies and foraminotomies L1-L2, L2-L3, L3-L4 and L4-5 and posterior spinal fusion L2-L5 by Dr. Nicholson. POD#3 s/p lumbar decompression bilateral medial facetectomies and foraminotomies L1-L2, L2-L3, L3-L4 and L4-5 and posterior spinal fusion L2-L5 by Dr. Nicholson. Per ortho for pain control, wound care, anticoagulation and activities Monitor H&H (EBL 900ml, pre-op hgb 16.3) -currently stable, continue to monitor Continue incentive spirometry, PT/OT when appropriate (3) Sinus tachycardia: Plan: Noted elevation in HR, persistently from 08/14. EKG done on 07/31 noted sinus tachycardia Repeat EKG ordered with echo for further evaluation. -pt declined EKG, echo not read at time of discharge. Echo noted moderately dilated left atrium- will communicate to pt after discharge. Pt declined fluids, notes that he has known that his HR was elevated for some time. PCP follow up recommended, consider cardiology follow up. (4) Hypertension: Plan: Chronic, stable. Continue amlodipine, lisinopril with hold parameters (5) Hyperlipidemia: Plan: Chronic, stable. Continue statin (6) BPH (benign prostatic hyperplasia): Plan: Continue Flomax (7) Smokeless tobacco use: Plan: Uses 1 can per day. Counseled on cessation. Declines nicotine patch (8) ADHD: Plan: Continue Adderall DVT Ppx: SCDs, started on Lovenox PCP: David Dispo: Per primary service Thank you for this consultation. We will follow the patient with you during their hospital stay. You can reach a member of the [facility] Hospitalist Team 07/05 via the h ospitalist role on tiger text. Admission and Anticipated Discharge Date Admission Date: August 14, 2023 Subjective Pt seen in the AM with and sister in law at bedside. About to be discharged. States that he has never felt better, pain controlled. Review of Systems Review of Systems: All systems reviewed & are unremarkable except as noted in Subjective Physical Exam Physical Exam: General: Alert, oriented. No acute distress Skin: No noted rashes or bruises Psych: Appropriate mood and affect Neuro: No gross deficits, laying in bed HEENT: NC/AT CV: RRR, Normal s1, s2. Resp: Breath sounds clear bilaterally, no increased effort of breathing. Abdomen: Soft, nontender, nondistended. Extremities: No edema in lower extremities bilaterally. Results & Data Results & Data Vital Signs (Past 12 Hours) Vital Signs Temp Pulse Pulse Resp BP Pulse Ox O2 Del Method 08/17/23 07:00 36.5 C 93 H 17 124/72 97 Room Air 08/17/23 02:33 87 16 117/68 96 Room Air
--- NOTE | 2023-08-17 16:00 | XCELERA ---
[id number] [id number]
== END 2023-08-17 12:58 | disposition home or self-care (01) | DRG 455 ==
LOC: ASU 06:49 → 3E 12:57

== ENCOUNTER 2025-03-02 10:34 | Inpatient (IN) ==
--- NOTE | 2025-01-28 12:53 | PAT Medication Instructions ---
Medication Instructions Date of Service January 28, 2025 Home Medications Medication Instructions Recorded oxycodone 5 mg tablet 5 mg PO Q6H PRN pain #30 tabs 08/15/23 amlodipine 10 mg tablet 10 mg PO QAM dextroamphetamine-amphetamine ER 15 mg 24hr capsule,extend release (Adderall XR) 15 mg PO QAM gabapentin 300 mg capsule 900 mg PO BID lisinopril 40 mg tablet 40 mg PO QAM omeprazole 20 mg capsule,delayed release 20 mg PO QAM pravastatin 20 mg tablet 20 mg PO HS testosterone 100 mg/mL intramuscular suspension 200 mg IM UD oxycodone 5 mg tablet 5 mg PO Q6H PRN pain All In One Mushroom Support 2 tabs PO DAILY ibuprofen 200 mg tablet (Advil) 400 mg PO Q6H PRN Pain Continue as directed testosterone 100 mg/mL intramuscular suspension 200 mg IM UD ASK your surgeon for instructions ibuprofen 200 mg tablet (Advil) 400 mg PO Q6H PRN Pain STOP taking 2 weeks before surgery (or as soon as possible if surgery is within 2 weeks) All In One Mushroom Support 2 tabs PO DAILY DO NOT take the morning of surgery dextroamphetamine-amphetamine ER 15 mg 24hr capsule,extend release (Adderall XR) 15 mg PO QAM lisinopril 40 mg tablet 40 mg PO QAM Take morning of surgery With a small sip of water, OTHERWISE NOTHING TO EAT OR DRINK AFTER MIDNIGHT: amlodipine 10 mg tablet 10 mg PO QAM gabapentin 300 mg capsule 900 mg PO BID omeprazole 20 mg capsule,delayed release 20 mg PO QAM oxycodone 5 mg tablet 5 mg PO Q6H PRN pain (if needed) Take evening before surgery gabapentin 300 mg capsule 900 mg PO BID pravastatin 20 mg tablet 20 mg PO HS oxycodone 5 mg tablet 5 mg PO Q6H PRN pain (if needed) Other Notes If you have any questions please call us at [phone] or [phone] or [phone] or [phone]
--- NOTE | 2025-02-05 11:40 | Anesthesiology Consultation ---
Date of Service February 05, 2025 Assessment & Plan (1) Encounter for pre-operative examination: - Infectious disease screening: Per assessment on 02/05/25- No known recent infectious disease contacts or current infectious disease symptoms. - S/P L2-3 decompression/fusion (08/14/23) * Grade view 1, Glidescope #4, ETT 7.5 at [facility]. No issues noted per post-op anesthesia progress note. * Per hospitalist note from POD#2, elevated HR noted during postop stay. EKG showed sinus tachycardia. Question of dehydration. Echo ordered/done. Patient discharged/deferred to PCP if further cardiac evaluation needed at their discretion. Of note, patient was (and still is) taking Adderall for ADHD. * PAT visit/preop 02/05/25: ECG NSR, 99bpm on preop testing. Denies palpitations/cardiopulmonary limiting complaints. Will forward preop EKG/testing to PCP (patient will be seeing PCP for preop evaluation prior to upcoming surgery). - Patient acceptable risk for surgery pending surgeon-ordered PCP preop evaluation (Dr. Vikki Ferguson/Teodoro, appt 5/6). Chart Review Chart Review: Patient seen in Pre Admission Testing Teaching & Discussion Pre-Anesthesia Teaching/Discussion Notes: Instructed NPO after midnight before surgery,except medications with 15 cc of water. Medication instructions provided according to the PAT guidelines. History Surgery Operation Date: 03/02/25 12:25 Proposed Procedures p L1-L2 Decompression with Extension of Fusion From T12-L2, with Spinal Cord Monitoring - Franck Nicholson, Height/Weight Height: 5 ft 11 in Weight: 121.563 kg Allergies Allergy/AdvReac Type Severity Reaction Status Date / Time No Known Allergies Allergy Verified 01/28/25 10:57 Medications Home Medications Medication Instructions Recorded Confirmed Last Taken amlodipine 10 mg tablet 10 mg PO QAM 07/24/23 01/28/25 08/13/23 09:00 dextroamphetamine-amphetamine ER 15 mg PO QAM 07/24/23 01/28/25 08/13/23 09:00 15 mg 24hr capsule,extend release (Adderall XR) gabapentin 300 mg capsule 900 mg PO BID 07/24/23 01/28/25 08/13/23 21:00 lisinopril 40 mg tablet 40 mg PO QAM 07/24/23 01/28/25 08/13/23 09:00 omeprazole 20 mg capsule,delayed 20 mg PO QAM 07/24/23 01/28/25 08/13/23 09:00 release pravastatin 20 mg tablet 20 mg PO HS 07/24/23 01/28/25 08/12/23 testosterone 100 mg/mL 200 mg IM UD 07/24/23 01/28/25 08/07/23 intramuscular suspension oxycodone 5 mg tablet 5 mg PO Q6H PRN pain #30 tabs 08/15/23 01/28/25 Unknown All In One Mushroom Support 2 tabs PO DAILY 01/28/25 01/28/25 Unknown ibuprofen 200 mg tablet (Advil) 400 mg PO Q6H PRN Pain 01/28/25 01/28/25 Unknown Past Medical History Medical History ADHD Arthritis Bilateral cataracts BPH (benign prostatic hyperplasia) GERD (gastroesophageal reflux disease) HLD (hyperlipidemia) HTN (hypertension) Hx of myocardial infarction (2007) Age 48 ("mild") Patient states they did not perform a heart cath at that time; he was started on BP medication at that time. No issues since. Neurogenic claudication Exercise / Class Metabolic Activity III < 4 Walking/Shop/Light housework Past Family History Family History Other Adopted Past Surgical History Surgical History Fusion of spine x2, most recent 07/2023 History of cholecystectomy (2009) History of colonoscopy History of esophagogastroduodenoscopy (EGD) Past Anesthesia History No Hx of Anesthesia Complications and No Family Hx of Anesthesia Complications History of PONV No Hx of PONV and Hx of Motion Sickness (Occasional) Social History Smoking Status: Never smoker Do You Dip or Chew Tobacco: No (Quit 8 weeks ago (late 11/2024)) Hx Alcohol Use: Yes Alcohol type: beer and wine alcohol intake frequency: a few times a month (once per month) Hx Substance Use: No substance use type: does not use Review of Systems Patient denies chest pain, shortness of breath, fever, chills, cough, wheezing, palpitations. Physical Exam Vital Signs BP 147/79 P 97 TEMP 98.7 SP02 97%RA RESP 18 Physical Mildly decreased cervical extension range of motion. Full TMJ range of motion. TMD 3 finger breaths Mallampati Score III Dentition: edentulous Lungs: clear throughout to auscultation Cardiac: regular rate and rhythm, no murmurs noted Spine: normal Carotid arteries: negative bruit Extremities: no LE edema Large jang- Patient advised to trim/shave > Patient states he will clean area near moustache/face but does not want to shorten jang. Patient advised that ultimate decision to proceed/if further trimming or shaving needed with be made by anesthesiologist DOS- patient voiced understanding. Lab Results Anesthesia Preop Results Results Anesthesia Widget: WBC 9.00 K/ul (4.8-10.8) 02/05/25 Hgb 15.9 g/dl (14.0-18.0) 02/05/25 Hct 46.3 % (42.0-52.0) 02/05/25 Plt 289 K/uL (130-400) 02/05/25 Na 137 mmol/L (136-145) 02/05/25 K 4.2 mmol/L (3.5-5.1) 02/05/25 Cl 104 mmol/L (98-107) 02/05/25 CO2 28 mmol/L (21-32) 02/05/25 BUN 14 mg/dl (6-23) 02/05/25 Creat 1.13 mg/dl (0.6-1.4) 02/05/25 Glucose Level 79 mg/dl (70-99(Fasting)) 02/05/25 PT 10.3 Seconds (9.0-12.0) 02/05/25 PTT 27 Seconds (21-31) 02/05/25 INR 0.9 (0.9-1.1) 02/05/25 Urine Color Yellow 02/05/25 Urine Appearance Clear (Clear) 02/05/25 Urine pH 5.5 (4.5-7.5) 02/05/25 Urine Specific Ama 1.016 (1.000-1.030) 02/05/25 Urine Protein Negative (Negative) 02/05/25 Urine Glucose (UA) Trace (Negative) H 02/05/25 Urine Ketones Negative (Negative) 02/05/25 Urine Blood Negative (Negative) 02/05/25 Urine Nitrite Negative (Negative) 02/05/25 Urine Bilirubin Negative (Negative) 02/05/25 Urine Urobilinogen Negative (Negative) 02/05/25 Urine Leukocyte Esterase Negative (Negative) 02/05/25 Blood Type A Positive 02/05/25 Antibody Screen NEGATIVE 02/05/25 Testing Electrocardiogram Date: 02/05/25 SR with first degree AVB at 99bpm. "Otherwise normal ECG" Chest X-Ray Date: 02/05/25 Findings: + NAD Echocardiogram Date: 08/17/23 EF 60-65%. LV wall motion is normal. Moderate LAd. Mild mitral annular calcification. No significant valvular disease.
--- NOTE | 2025-03-02 11:37 | History & Physical Bridge Note ---
Date of Service March 02, 2025 History & Physical Bridge Note I have examined the patient, reviewed the History & Physical and in the interval since the performance of the History & Physical I have noted the following changes of clinical significance: no changes noted
--- NOTE | 2025-03-02 11:38 | History & Physical Report ---
Date of Service March 02, 2025 Assessment & Plan (1) Other spondylosis with radiculopathy, lumbar region: Plan: L1-L2 decompression with extension of fusion from the T12-L2 History of Present Illness Chief Complaint: Back and leg pain Primary Care Provider: Vikki Ferguson DO This is a 65-year-old male who presents chronic persistent back and leg pain after failing course of nonoperative care is here for surgical intervention. Allergies Allergy/AdvReac Type Severity Reaction Status Date / Time No Known Allergies Allergy Verified 03/02/25 11:01 Home Medications Medication Instructions Recorded Confirmed Type amlodipine 10 mg tablet 10 mg PO QAM 07/24/23 03/02/25 History dextroamphetamine-amphetamine ER 15 mg PO QAM 07/24/23 03/02/25 History 15 mg 24hr capsule,extend release (Adderall XR) gabapentin 300 mg capsule 900 mg PO BID 07/24/23 03/02/25 History lisinopril 40 mg tablet 40 mg PO QAM 07/24/23 03/02/25 History omeprazole 20 mg capsule,delayed 20 mg PO QAM 07/24/23 03/02/25 History release pravastatin 20 mg tablet 20 mg PO HS 07/24/23 03/02/25 History testosterone 100 mg/mL 200 mg IM UD 07/24/23 03/02/25 History intramuscular suspension oxycodone 5 mg tablet 5 mg PO Q6H PRN pain #30 tabs 08/15/23 03/02/25 Rx All In One Mushroom Support 2 tabs PO DAILY 01/28/25 03/02/25 History ibuprofen 200 mg tablet (Advil) 400 mg PO Q6H PRN Pain 01/28/25 03/02/25 History Past Med/Surg History Problem List (Updated 03/02/25 @ 11:37 by Franck Nicholson DO) Other spondylosis with radiculopathy, lumbar region Encounter for pre-operative examination BPH (benign prostatic hyperplasia) Neurogenic claudication due to lumbar spinal stenosis ADHD Hypertension Hyperlipidemia Medical History ADHD Arthritis Bilateral cataracts BPH (benign prostatic hyperplasia) GERD (gastroesophageal reflux disease) HLD (hyperlipidemia) HTN (hypertension) Hx of myocardial infarction (2007) Age 48 ("mild") Patient states they did not perform a heart cath at that time; he was started on BP medication at that time. No issues since. Neurogenic claudication Surgical History Fusion of spine x2, most recent 07/2023 History of cholecystectomy (2009) History of colonoscopy History of esophagogastroduodenoscopy (EGD) Family History Other Adopted Social History Smoking Status: Never smoker Tobacco Type: Smokeless Tobacco (Dip or Chew) Second Hand Exposure: No; Do You Dip or Chew Tobacco: No (Quit 8 weeks ago (late 11/2024)); Tobacco Cessation Education Requested by Patient: No Hx Alcohol Use: Yes Alcohol type: beer and wine Hx Substance Use: No Preferred Language: Nigerian Communication Ability: Effective Director Customer Required: No Beliefs That Will Affect Care: None Current Living Situation: Spouse Feels Safe at Home: Yes Safety Concerns: Feels Safe At This Time Assistive Devices: Denture - Upper and Denture - Lower Physical Exam Physical Exam: Patient is alert and oriented heart regular rhythm Lungs clear Results & Data Results & Data Vital Signs (Past 12 Hours) Vital Signs Temp Pulse Resp Pulse Ox O2 Del Method 03/02/25 11:04 36.8 C 107 H 20 92 Room Air
--- NOTE | 2025-03-02 13:49 | Operative Report ---
Post Operative Report Pre & Post Diagnosis Operation Date: 03/02/25 11:55 Pre-Op Diagnosis: #1 lumbar spondylosis with radiculopathy #2 lumbar spinal stenosis #3 obesity Post-Op Diagnosis: Same I identified the patient and participated in the time-out.: Yes Procedure Operation Date: 03/02/25 11:55 Actual Procedures #1 decompression T12-L1 L1-L2 with bilateral medial facetectomies and foraminotomies. #2 posterior spinal fusion L1-L2. #3 placed posterior instrumentation T12-L2 with connectors at L2-L3 L4 using medic Creo. #4 interbody fusion L1-L2. #5 placement Spira 10 x 26 mm at L1-L2. #6 placement locally harvested morselized graft posterior gutters . #7 placement is collagen sponge, with Koros bone graft in the posterior gutters and os design interbody space. #8 application of versa wrap of the exposed dura.. Surgeon Franck Nicholson, DO Wood Barrel Reconditioner Glenna Platt Estimated Blood Loss 350 Findings See Below The patient is 5 feet 11 weighing over 119 kg with a BMI in excess of 36. The patient Did contribute to significant technical difficulty with positioning exposure and the procedure itself and at least 50% increased operative time. Specimens None he Indications This is a 65-year-old male presents publish diagnosis of failed course of nonoperative care is here for surgical invention. Description of Procedure Patient was met with identified informed consent obtained. Manage patient was then taken to the operative suite underwent intubation placed in a prone position on the Jhonny table the chest pad and hip bolsters. All bony prominences well-padded eyes inspected to ensure no external pressure placed upon the. This point the thoracolumbar spine was prepped and draped in our sterile fashion. Sharp dissection with the assistance of Bovie cautery performed down to and exposing the lamina and transverse processes of T12 and L1 and instrumentation L2-L3 bilaterally. I then performed a complete laminectomy of the L1 including bilateral medial facetectomies and foraminotomies addressing severe spinal stenosis with partial laminectomy of T12 with bilateral medial facetectomies to address all subarticular stenosis. Screws were then placed in T12 and L1 bilaterally with the assistance of fluoroscopy and connectors att ached to the L2 or 3 sue. I did replace the end Of the L2 pedicle screw as and evaluated the transforaminal approach on the i it was loose. Right a complete discectomy of L1-2 was performed endplates guided to subcortical and bone and a 10 x 26 mm spiral cage filled with os design bone graft after position. Proper size rods were then locked into position bilaterally. The transverse processes of T12 L1-L2 burred to subcortical bleeding bone. Infuse collagen sponge, with Koros low placed posterior gutters. Versa wrap placed over exposed dura. 15 round ARLEY drain inserted. The incision was then closed with 1 Vicryl the fascia 2-0 Vicryl subcutaneously and 4 Monocryl for final skin closure. Steri-Strips sterile dressing placed. Patient waken taken to PACU in stable condition. Please note Glenna Platt was present at the entire procedure and on the patient positioning complex portion of the surgery and final skin closure. Im ordering 10 grams of Collagen Powder (HCPCS A6010 Primary Dressing) and 10 bordered super absorbent (HCPCS A6196 Secondary Dressing) to treat an incision wound that was caused by a spine procedure. The incision is approximately 2 cm(W) x 2 cm(L) down to the spinal column and epidural space 2 cm (D) in size and is a full thickness wound showing no signs of infection. Collagen comes in 1 gram packets so 10 packets were ordered. Given the size of the wound, with moderate exudate I chose to order a 10 day supply. The patient will be provided instructions for proper application of the collagen wound kit. The patient will be asked to apply the collagen powder daily and then cover it with sterile dressings dispensed. Collagen was selected as I expect the collagen to attract monocytes and fibroblasts, act as a sacrificial substrate for MMPs, and ultimately proved a matrix for tissue and vessel growth. The collagen will act as a primary dressing in this scenario. It is medically necessary for proper healing of these wounds to improve bioavailability and contact with each wound surface, this is also to help prevent infection of wounds and promote healing ultimately leading to a better healing outcome and limit the risk of infection. I attest to the content of the Intraoperative Record and any orders documented therein. Any exceptions are noted below.
--- NOTE | 2025-03-02 14:29 | Fluoroscopy Report ---
FL lumbar spine 2-3V CLINICAL HISTORY: L1-L2 DECOMPRESSION AND EXTENSION OF FUSION COMPARISON STUDY: None FLUOROSCOPY TIME: 23 seconds FLUOROSCOPY IMAGES: 3 EXPOSURE DOSE: 21 mGy FINDINGS: Fluoroscopy was provided for lumbar fusion. IMPRESSION: Intraoperative fluoroscopy. ACT 112: Negative or not required by law. Electronically signed by: Enrrique Garg M.D. 03/02/2025 2:28 PM
--- NOTE | 2025-03-02 15:03 | Anesthesiology Progress Note ---
Date of Service March 02, 2025 Anesthesia Post Procedure Vital Signs Vital Signs: Temp Pulse Pulse Resp BP Pulse Ox O2 Del Method 03/02/25 15:00 36.8 C 93 H 14 140/74 95 Nasal Cannula 03/02/25 14:50 92 H 12 141/94 H 95 Oxymask 03/02/25 14:40 96 H 12 151/86 H 96 Oxymask 03/02/25 14:29 36.7 C 96 H 18 141/95 H 96 Oxymask 03/02/25 11:04 36.8 C 107 H 20 92 Room Air O2 Flow Rate 03/02/25 15:00 3 03/02/25 14:50 6 03/02/25 14:40 6 03/02/25 14:29 6 03/02/25 11:04 Pain Intensity Back: Pain Intensity: 9 Transfer of Care Handoff Completed per policy Notes Mental Status: alert / awake / arousable and participated in evaluation Nausea / Vomiting: adequately controlled Pain: adequately controlled Airway Patency, RR, SpO2: stable & adequate BP & HR: stable & adequate Hydration State: stable & adequate Anesthetic Complications: no major complications apparent and Pt Satisfied with anesthetic care
--- NOTE | 2025-03-02 16:24 | Consultation ---
Date of Consultation March 02, 2025 Assessment & Plan (1) Other spondylosis with radiculopathy, lumbar region: (2) Hypertension: (3) Hyperlipidemia: (4) BPH (benign prostatic hyperplasia): Plan This is a 65yo M who has a significant PMH of PMH of HTN, HLD, GERD, BPH who presented to elective lumbar surgery by Dr. Nicholson today. S/P T12-L2 decompression with L1-L2 fusion by Dr. Nicholson, POD #0 tolerated procedure well pain/wound management per ortho activity and therapy per ortho #HTN: chronic, stable, continue amlodipine, lisinopril #HLD: chronic, stable, continue statin #Gerd: continue omeprazole #Obesity: BMI 36.7, encourage diet/lifestyle measures when able DVT ppx: per primary FULL CODE PCP: Vikki Ferguson Dispo: per primary Pt was seen and examined in collaboration with Dr. Murry, please see addendum I spent a total of 40 minutes coordinating, documenting and providing care for this patient excluding time spent in the performance of separately billed services or time spent by another provider/QHP. Supervising Physician Co-Signing Physician Notes I have seen and discussed the case with the collaborating advanced practitioner. I agree with the above H&P. I have reviewed and confirmed the patients medical history, the findings on physical examination, and the patients diagnosis and treatment plan with Darcie CAMPO and agree with the information documented. In short, Mr. Mcgarry is a 65 yo gentleman with HTN, HLD, GERD, BPH who is now s/p T12-L2 decompression with L1-L2 fusion by Dr. Nicholson. Patient doing well and endorsing no current post op discomfort. Monitor labs in am for post op anemia and assess renal function. Agree with above. I spent a total of 15 minutes coordinating, documenting, and providing care for this patient excluding time spent in the performance of separately billed services. All of the aforementioned completed outside of collaborating with the assigned advanced practitioner for a full treatment plan. I have reviewed the advanced practitioner's documentation, and I agree with, and take responsibility for the plan of care History of Present Illness Requesting Physician: Dr. Nicholson Reason for Consultation: Post op medical management Attending Physician: Franck Nicholson, DO History of Present Illness This is a 65yo M who has a significant PMH of PMH of HTN, HLD, GERD, BPH who presented to elective lumbar surgery by Dr. Nicholson today. He underwent a T12-L2 decompression, posterior fusion L1-L2 and tolerated procedure well. Hx obtained from pt and at bedside. He feels well and wants to eat food. He is having some incisional tenderness, but otherwise denies radicular sx. Denies f/c/s, chest pain, sob, n/v/d. He has already been weaned from oxygen. He [place] with a P[place]. HE has hx of HTN controlled on multidrug regimen. He also has hx of HLD controlled on Statin. He has had 3 prior back operations in past. Allergies Allergy/AdvReac Type Severity Reaction Status Date / Time No Known Allergies Allergy Verified 03/02/25 11:01 Home Medications Medication Instructions Recorded Confirmed Type amlodipine 10 mg tablet 10 mg PO QAM 07/24/23 03/02/25 History dextroamphetamine-amphetamine ER 15 mg PO QAM 07/24/23 03/02/25 History 15 mg 24hr capsule,extend release (Adderall XR) gabapentin 300 mg capsule 900 mg PO BID 07/24/23 03/02/25 History lisinopril 40 mg tablet 40 mg PO QAM 07/24/23 03/02/25 History omeprazole 20 mg capsule,delayed 20 mg PO QAM 07/24/23 03/02/25 History release pravastatin 20 mg tablet 20 mg PO HS 07/24/23 03/02/25 History testosterone 100 mg/mL 200 mg IM UD 07/24/23 03/02/25 History intramuscular suspension oxycodone 5 mg tablet 5 mg PO Q6H PRN pain #30 tabs 08/15/23 03/02/25 Rx All In One Mushroom Support 2 tabs PO DAILY 01/28/25 03/02/25 History ibuprofen 200 mg tablet (Advil) 400 mg PO Q6H PRN Pain 01/28/25 03/02/25 History Patient History Medical History Arthritis Bilateral cataracts Hx of myocardial infarction (2007) Age 48 ("mild") Patient states they did not perform a heart cath at that time; he was started on BP medication at that time. No issues since. Neurogenic claudication ADHD BPH (benign prostatic hyperplasia) HLD (hyperlipidemia) HTN (hypertension) GERD (gastroesophageal reflux disease) Surgical History History of esophagogastroduodenoscopy (EGD) History of colonoscopy History of cholecystectomy (2009) Fusion of spine x2, most recent 07/2023 Family History Other Adopted Social History Smoking Status: Never smoker Tobacco Type: Smokeless Tobacco (Dip or Chew) Second Hand Exposure: No; Do You Dip or Chew Tobacco: No (Quit 8 weeks ago (late 11/2024)); Tobacco Cessation Education Requested by Patient: No Hx Alcohol Use: No Hx Substance Use: No Preferred Language: Cymro Communication Ability: Effective [place] Cleaner Required: No Beliefs That Will Affect Care: None Current Living Situation: Spouse Feels Safe at Home: Yes Safety Concerns: Feels Safe At This Time Assistive Devices: Denture - Upper and Denture - Lower Review of Systems Review of Systems: All systems reviewed & are unremarkable except as noted in HPI & below Physical Exam Physical Exam: Constitutional: WD/WN, vitals as above, NAD, sitting up in bed, pleasant, conversing easily Head: Normocephalic, Atraumatic Eyes: PERRL, conjunctivae normal, anicteric sclerae ENMT: external ear and nose normal, oropharynx normal, + long jang/facial hair Neck: trachea midline, no thyromegaly normal visual inspection Respiratory: normal respiratory effort, lungs clear to auscultation, no wheeze, rales, rhonchi. Normal insp/exp effort, no accessory muscle use Cardiovascular: RRR, no murmur, no edema Abdomen: normal bowel sounds, soft, nontender, no hepatosplenomegaly Musculoskeletal: no cyanosis or clubbing, AROM x 4, lumbar dressing CDI, otto drain in tact Skin: no rashes, warm and dry normal turgor Neurologic: no face palsy, no dysarthria CN's II-XI intact bilaterally and moves all extremities Psychiatric: A+Ox3, euthymic affect : bradford with clear urine Results & Data Vital Signs (Past 12 Hours) Vital Signs Temp Pulse Pulse Resp BP Pulse Ox O2 Del Method 03/02/25 16:04 36.5 C 96 H 18 146/88 H 93 Room Air 03/02/25 15:30 88 14 143/86 H 97 Nasal Cannula 03/02/25 15:15 88 18 130/87 94 Nasal Cannula 03/02/25 15:00 36.8 C 93 H 14 140/74 95 Nasal Cannula 03/02/25 14:50 92 H 12 141/94 H 95 Oxymask 03/02/25 14:40 96 H 12 151/86 H 96 Oxymask 03/02/25 14:29 36.7 C 96 H 18 141/95 H 96 Oxymask 03/02/25 11:04 36.8 C 107 H 20 92 Room Air O2 Flow Rate 03/02/25 16:04 03/02/25 15:30 3 03/02/25 15:15 3 03/02/25 15:00 3 03/02/25 14:50 6 03/02/25 14:40 6 03/02/25 14:29 6 03/02/25 11:04 Laboratory Results I have independently reviewed and interpreted patient's admitting labs including CBC, BMP, UA Diagnostic Findings Lumbar Spine X-Ray 03/02/25 11:55 FL lumbar spine 2-3V CLINICAL HISTORY: L1-L2 DECOMPRESSION AND EXTENSION OF FUSION COMPARISON STUDY: None FLUOROSCOPY TIME: 23 seconds FLUOROSCOPY IMAGES: 3 EXPOSURE DOSE: 21 mGy FINDINGS: Fluoroscopy was provided for lumbar fusion. IMPRESSION: Intraoperative fluoroscopy. ACT 112: Negative or not required by law. Electronically signed by: Enrrique Garg M.D. 03/02/2025 2:28 PM Medications Administered Current Inpatient Medications Acetaminophen (Acetaminophen 500 Mg Tab) 1,000 mg PO PREOP JATINDER Stop: 03/02/25 18:00 Last Admin: 03/02/25 11:08 Dose: 1,000 mg Acetaminophen (Acetaminophen 500 Mg Tab) 1,000 mg PO Q8H PRN PRN Reason: MILD Pain Scale 1,2,3 & Pre PT Stop: 04/01/25 16:03 Al Hydrox/Mg Hydrox/Simethicone (Aluminum/Magnesium Susp 30 Ml Udc) 30 ml PO Q6H PRN PRN Reason: Dyspepsia Stop: 04/01/25 16:03 Amlodipine Besylate (Amlodipine Besylate 5 Mg Tab) 10 mg PO QAM JATINDER Stop: 04/02/25 08:59 Bisacodyl (Bisacodyl 10 Mg Supp) 10 mg [place] DAILY PRN PRN Reason: Constipation Stop: 04/01/25 16:03 Celecoxib (Celebrex 200 Mg Cap) 200 mg PO PREOP JATINDER Stop: 03/02/25 18:00 Last Admin: 03/02/25 11:08 Dose: 200 mg Diphenhydramine HCl (Diphenhydramine Capsule 25 Mg Cap) 25 mg PO Q6H PRN PRN Reason: Allergic Rhinitis/Insomnia Stop: 04/01/25 16:03 Famotidine (Famotidine 20 Mg Tab) 20 mg PO Q12H PRN PRN Reason: Dyspepsia Stop: 04/01/25 16:03 Gabapentin (Gabapentin 300 Mg Cap) 300 mg PO PREOP JATINDER Stop: 03/02/25 18:00 Last Admin: 03/02/25 11:09 Dose: 300 mg Gabapentin (Gabapentin 300 Mg Cap) 900 mg PO BID JATINDER Stop: 04/01/25 20:59 Hydromorphone HCl (Hydromorphone Inj 0.5 Mg/0.5 Ml Syr) 0.5 mg IV Q3H PRN PRN Reason: MODERATE Pain (Scale 4,5,6) & Pre PT Stop: 03/16/25 16:03 Hydromorphone HCl (Hydromorphone Inj 1 Mg/Ml Syringe) 1 mg IV Q3H PRN PRN Reason: SEVERE Pain (Scale 7,8,9,10) Stop: 03/16/25 16:03 Hydroxyzine HCl (Hydroxyzine Hcl 25 Mg Tab) 25 mg PO Q8H PRN PRN Reason: Anxiety Stop: 04/01/25 16:03 Lactated Ringer's (Lr) 1,000 mls @ 15 mls/hr IV .Q24H JATINDER Stop: 03/03/25 05:59 Last Infusion: 03/02/25 11:56 Dose: Infused Cefazolin Sodium (Ancef 3000mg) 3,000 mg in 72.5 mls @ 130 mls/hr IV PREOP JATINDER; Protocol Stop: 03/02/25 18:00 Last Admin: 03/02/25 11:57 Dose: 130 mls/hr Lactated Ringer's (Lr) 1,000 mls @ 60 mls/hr IV .[id number] JATINDER Stop: 03/02/25 22:39 Last Admin: 03/02/25 11:08 Dose: Not Given Acetaminophen (Ofirmev) 1,000 mg in 100 mls @ 400 mls/hr IV Q8H PRN PRN Reason: Pain Rating 1-3 & Pre PT Stop: 03/03/25 16:04 Cefazolin Sodium (Ancef 2000mg) 2,000 mg in 15 mls @ 3.75 mls/min IV Q8H JATINDER; Protocol Stop: 03/03/25 04:03 Promethazine HCl (Phenergan) 12.5 mg in 50.5 mls @ 202 mls/hr IV Q6H PRN PRN Reason: Nausea And Vomiting Stop: 04/01/25 16:03 Dexamethasone 6 mg/ Syringe 1.5 mls @ 1 mls/min IV DAILY [facility] Stop: 03/05/25 09:02 Influenza Virus Vaccine Quadrival (Do Not Administer Flu Vaccine) 1 each N/A PRN PRN PRN Reason: Notification Stop: 04/01/25 16:03 Lisinopril (Lisinopril 40 Mg Tab) 40 mg PO QAM JATINDER Stop: 04/02/25 08:59 Lorazepam (Lorazepam 0.5 Mg Tab) 0.5 mg PO Q8H PRN PRN Reason: Sedation/Anxiety Stop: 04/01/25 16:03 Lorazepam (Lorazepam 2 Mg/1 Ml Vial) 0.5 mg IV Q8H PRN PRN Reason: Sedation/Anxiety Stop: 04/01/25 16:03 Magnesium Hydroxide (Magnesium Hydroxide Susp 30 Ml Udc) 30 ml PO Q24H PRN PRN Reason: Constipation Stop: 04/01/25 16:03 Metoclopramide HCl (Metoclopramide Hcl Inj 5 Mg/Ml 2 Ml Vial) 10 mg IV Q6H PRN PRN Reason: Nausea &/or Vomiting Stop: 04/01/25 16:03 Naloxone HCl (Naloxone Hcl 0.4 Mg/1 Ml Vial/Carp) 0.1 mg IV Q5M PRN PRN Reason: Oversedation/Resp depression Stop: 04/01/25 16:03 Non-Formulary Medication (Dextroamphetamine-Amphetamine [Adderall Xr]) 15 mg PO QAM [facility] Stop: 04/02/25 08:59 Non-Formulary Medication (Testosterone) 200 mg IM UD [facility] Stop: 04/01/25 16:03 Ondansetron HCl (Ondansetron Inj 2 Mg/Ml 2 Ml Vial) 4 mg IV Q6H PRN PRN Reason: Nausea &/or Vomiting Stop: 04/01/25 16:03 Ondansetron HCl (Ondansetron 4 Mg Od Tab) 4 mg PO Q6H PRN PRN Reason: Nausea Stop: 04/01/25 16:03 Oxycodone HCl (Oxycodone Hcl Ir 5 Mg Tab (Immediate Release)) 5 - 10 mg PO Q4H PRN PRN Reason: Pain & Pre PT Stop: 03/16/25 16:03 Pantoprazole Sodium (Pantoprazole 40 Mg Tab) 40 mg PO QAM [facility] Stop: 04/02/25 08:59 Pneumococcal Polyvalent Vaccine (Do Not Administer Pneumococcal Vaccine) 1 each N/A PRN PRN PRN Reason: Notification Stop: 04/01/25 16:03 Polyethylene Glycol (Polyethylene (Miralax) 17 Gm Pack) 17 gm PO Q6 [facility] Stop: 04/02/25 05:59 Pravastatin Sodium (Pravastatin Sod 20 Mg Tab) 20 mg PO HS [facility] Stop: 04/01/25 20:59 Senna/Docusate Sodium (Docusate Sodium/Senna 50/8.6mg Tab) 2 tab PO HS [facility] Stop: 04/01/25 20:59 Sodium Biphosphate/Sodium Phosphate (Sod Phosphate/Sod Biphosphate Enema 132 Ml Btl) 132 ml [place] ONE PRN PRN Reason: Constipation Stop: 04/01/25 16:03 Tramadol HCl (Tramadol Hcl 50 Mg Tablet) 50 - 100 mg PO Q4H PRN PRN Reason: Moderate-Severe pain & Pre PT Stop: 04/01/25 16:03 ECG Additional Comments: I have independently reviewed and interpreted patient's admitting EKG which revealed: 99 NSR, 1st degree AVB
[2025-03-03 07:26] LABS: Basophils # (auto) 0.03 K/uL (0.00-0.20); Basophils % (auto) 0.2 %; Hematocrit (blood only) 43.3 % (42.0-52.0); Immature Granulocytes # (auto) 0.09 K/uL (0.01-0.20); Immature Granulocytes % (auto) 0.5 %; Lymphocytes # (auto) 2.08 K/uL (1.20-3.40); Lymphocytes % (auto) 11.8 %; Mean Corpuscular Hemoglobin 30.5 pg (25.0-34.0); Mean Corpuscular Hgb Conc 34.6 g/dL (32.0-36.0); Mean Corpuscular Volume 88.2 fL (80.0-100.0); Mean Platelet Volume 9.8 fL (9.4-12.4); Monocytes # (auto) 1.51 K/uL (0.11-0.59); Monocytes % (auto) 8.5 %; Neutrophils # (auto) 13.98 K/uL (1.40-6.50); Platelet Count 263 K/uL (130-400); RDW Coefficient of Variation 13.1 % (11.5-14.5); RDW Standard Deviation 42.5 fL (36.4-46.3); Red Blood Count 4.91 M/uL (4.70-6.10); White Blood Count 17.69 K/ul (4.8-10.8)
[2025-03-03 07:53] LABS: BUN Creatinine Ratio 11.9 (10-20); Calcium 8.9 mg/dl (8.6-10.3); Creatinine Clr Calc Pharmacy 71.7 ml/min; Potassium 4.5 mmol/L (3.5-5.1)
--- NOTE | 2025-03-03 08:43 | Hospitalist Progress Note ---
Date of Service March 03, 2025 Assessment & Plan (1) Other spondylosis with radiculopathy, lumbar region: (2) Hypertension: (3) Hyperlipidemia: (4) BPH (benign prostatic hyperplasia): Plan This is a 65yo M who has a significant PMH of PMH of HTN, HLD, GERD, BPH who presented to elective lumbar surgery by Dr. Nicholson on 03/02. S/P T12-L2 decompression L1-L2 fusion by Dr. Nicholson, POD #1 tolerated procedure well EBL 350mL. post op Hgb 15.0; baseline 15.9 ARLEY drain x1 hong red ouput pain/wound management per ortho PT/OT per ortho Incentive spirometry HTN: chronic, stable, continue amlodipine, lisinopril HLD: chronic, stable, continue statin GERD: continue omeprazole Obesity: BMI 36.7, encourage diet/lifestyle measures when able Disposition: PCP: Vikki Ferguson DVT ppx: per primary Code Status: Full code I spent a total of 56 minutes coordinating, documenting and providing care for this patient excluding time spent in the performance of separately billed services or time spent by another provider/QHP. Admission and Anticipated Discharge Date Admission Date: March 02, 2025 Supervising Physician Co-Signing Physician Notes Patient was seen and examined at bedside patient reports improvement in his RLE radicular signs symptoms, fairly under control operative site pain. Patient is satisfied with the surgery. Patient reports feeling better. On exam: Low back dressing C/D/I, ARLEY drain with moderate serosanguineous collection noted. Rest of the examination as above. Total time spent: 12 minutes I have seen and examined the patient and have discussed the case with the provider above. I agree with the assessment and plan as stated. Subjective patient lying on his right side in the morning in no apparent distress. His is at bedside. Patient slept well overnight and has been up ambulating independently to the bathroom. At baseline he uses a cane intermittently. He utilized 1 dose of pain medication overnight. Reports positive flatulence and BM x 2 since last evening. Patient denies chest pain, dizziness, shortness of breath, peripheral neuropathy abdominal pain or tenderness. Main complaint today is his reflux symptoms Dr. Nicholson came into the room when I was with the patient and he may see some plans for left pelvis imaging depending on how patient does with physical therapy per Ortho See A/P for further details. Review of Systems Review of Systems: Neuro: (-) Falls, trauma, slurred speech HEENT: (-) GELLER, dizziness, dysphagia, visual or auditory changes CV: (-) CP, palpitations, swelling Resp: (-) SOB GI: (-) appetite changes, N/V/D, bowel changes : (-) urinary changes Skin: (-) rashes Psych: (-) anxiety, depression Physical Exam Physical Exam: Neuro: AAOx4, PERRLA, no aphagia, memory changes, CNII-XII grossly intact HEENT: head normocephalic, moist mucus membranes CV: S1/S2, (-) M/G/R, (-) edema, cap refill < 3 seconds ARLEY drain x1 with hong red bloody output Resp: Lungs CTA in all mcneal. On RA GI: Abdomen S/NT/ND, Ax4 bowel sounds, (-) CVA tenderness Musculoskeletal: 5/5 B/L UE strength, 5/5 B/L LE strength. No gait disturbance Skin: (-) rashes , (-) erythema. Psych: euthymic mood Results & Data Results & Data Vital Signs (Past 12 Hours) Vital Signs Temp Pulse Resp BP Pulse Ox O2 Del Method 03/03/25 07:55 36.9 C 113 H 16 123/71 97 Room Air 03/03/25 02:34 36.7 C 109 H 16 113/69 94 Room Air 03/02/25 22:47 37.0 C 112 H 16 123/65 96 Room Air Laboratory Results Short CBC 03/03/25 Range/Units 07:06 WBC 17.69 H (4.8-10.8) K/ul Hgb 15.0 (14.0-18.0) g/dl Hct 43.3 (42.0-52.0) % Plt Count 263 (130-400) K/uL BMP 03/03/25 07:06 Sodium 135 L Potassium 4.5 Chloride 103 Carbon Dioxide 24 BUN 16 Creatinine 1.35 Glucose 132 H Calcium 8.9
--- NOTE | 2025-03-03 13:35 | Orthopedic Progress Note ---
Date of Service March 03, 2025 Assessment & Plan (1) Other spondylosis with radiculopathy, lumbar region: Plan: At this time continue physical therapy monitor his ARLEY operatively discharge home in the next few days. Admission and Anticipated Discharge Date Admission Date: March 02, 2025 Subjective Patient's back pain is controlled. Leg symptoms improved. Physical Exam Physical Exam: On exam patient is comfortable. Distracted testing. Results & Data Vital Signs (Past 12 Hours) Vital Signs Temp Pulse Resp BP Pulse Ox O2 Del Method 03/03/25 08:45 Room Air 03/03/25 07:55 36.9 C 113 H 16 123/71 97 Room Air 03/03/25 02:34 36.7 C 109 H 16 113/69 94 Room Air Queries Orthopedic Spine Obesity: Yes
--- NOTE | 2025-03-04 07:11 | Hospitalist Progress Note ---
Date of Service March 04, 2025 Assessment & Plan (1) Other spondylosis with radiculopathy, lumbar region: (2) Hypertension: (3) Hyperlipidemia: (4) BPH (benign prostatic hyperplasia): Plan This is a 65yo M who has a significant PMH of PMH of HTN, HLD, GERD, BPH who presented to elective lumbar surgery by Dr. Nicholson on 03/02. Other spondylosis with radiculopathy, lumbar region: S/P T12-L2 decompression/Fusion surgery under the care of Dr. Nicholson POD #2; tolerated procedure well EBL 350mL. Hgb 13.3; baseline 15.9 ARLEY drain x1 hong red output pain/wound management per ortho PT/OT per ortho; ambulating with walker in the hallways Incentive spirometry Feliciano DC'd and has spontaneously voided Patient indicates that he would like to drive himself home. Discussed that this is typically not recommended given opioid use and possibility of decreased r eflex control. 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 Continue conversation and will discuss with PT as well. HTN: chronic, stable, continue amlodipine, lisinopril HLD: chronic, stable, continue statin GERD: continue omeprazole Obesity: BMI 36.7, encourage diet/lifestyle measures when able Disposition: PCP: Vikki Ferguson DVT ppx: per primary Code Status: Full code I spent a total of 56 minutes coordinating, documenting and providing care for this patient excluding time spent in the performance of separately billed services or time spent by another provider/QHP. Admission and Anticipated Discharge Date Admission Date: March 02, 2025 Supervising Physician Co-Signing Physician Notes POD 2 of lumbar decompression surgery. Creatinine and Hgb stable at this time. Dispo per Ortho, medically stable for discharge from medical perspective. I have seen and discussed the case with the collaborating advanced practitioner. I agree with the above H&P. I have reviewed and confirmed the patients medical history, the findings on physical examination, and the patients diagnosis and treatment plan with Susu LARA and agree with the information documented. I spent a total of 20 minutes coordinating, documenting, and providing care for this patient excluding time spent in the performance of separately billed services. All of the aforementioned completed outside of collaborating with the assigned advanced practitioner for a full treatment plan. I have reviewed the advanced practitioner's documentation, and I agree with, and take responsibility for the plan of care Subjective Patient ambulating in the hallway with his walker no apparent distress. Utilized ONE dose of Oxycodone overnight and ONE dose this AM Patient denies chest pain, shortness of breath, dizziness patient remains normotensive. Feliciano DC'd and has spontaneously voided Patient indicates that he would like to drive himself home. Discussed that this is typically not recommended given opioid use and possibility of decreased reflex control. 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 Continue conversation and will discuss with PT as well. Anticipate discharge 03/05 by orthospine service Review of Systems Review of Systems: Neuro: (-) Falls, trauma, slurred speech HEENT: (-) GELLER, dizziness, dysphagia, visual or auditory changes CV: (-) CP, palpitations, swelling Resp: (-) SOB GI: (-) appetite changes, N/V/D, bowel changes : (-) urinary changes Musculoskeletal: (-) peripheral neuropathy Skin: (-) rashes Psych: (-) anxiety, depression Physical Exam Physical Exam: Neuro: AAOx4, PERRLA, no aphagia, memory changes, CNII-XII grossly intact HEENT: head normocephalic, moist mucus membranes CV: S1/S2, (-) M/G/R, (-) edema, cap refill < 3 seconds ARLEY drain x1 small amount hong red bloody output Resp: Lungs CTA in all mcneal. On RA GI: Abdomen S/NT/ND, Ax4 bowel sounds, (-) CVA tenderness Musculoskeletal: 5/5 B/L UE strength, 5/5 B/L LE strength. Uses a walker for ambulation Skin: (-) rashes , (-) erythema. Psych: euthymic mood Results & Data Results & Data Vital Signs (Past 12 Hours) Vital Signs Temp Pulse Resp BP Pulse Ox O2 Del Method 03/03/25 19:37 36.8 C 98 H 16 106/71 95 Room Air
[2025-03-04 07:49] LABS: Hematocrit (blood only) 39.1 % (42.0-52.0); Hemoglobin 13.3 g/dl (14.0-18.0); Mean Corpuscular Hemoglobin 30.5 pg (25.0-34.0); Mean Corpuscular Volume 89.7 fL (80.0-100.0); Mean Platelet Volume 9.9 fL (9.4-12.4); Platelet Count 241 K/uL (130-400); RDW Coefficient of Variation 13.5 % (11.5-14.5); Red Blood Count 4.36 M/uL (4.70-6.10); White Blood Count 15.48 K/ul (4.8-10.8)
[2025-03-04 08:01] LABS: BUN Creatinine Ratio 16.3 (10-20); Calcium 8.6 mg/dl (8.6-10.3); Potassium 4.8 mmol/L (3.5-5.1)
--- NOTE | 2025-03-04 11:06 | Orthopedic Progress Note ---
Date of Service March 04, 2025 Assessment & Plan (1) Other spondylosis with radiculopathy, lumbar region: Plan: At this time we will continue physical therapy monitor his ARLEY output anticipate discharge home tomorrow. Admission and Anticipated Discharge Date Admission Date: March 02, 2025 Subjective Patient's back pain is controlled leg symptoms improved. He is tolerating physical therapy. Physical Exam Physical Exam: On exam patient is ambulating well. Good strength testing. Is comfortable. Results & Data Vital Signs (Past 12 Hours) Vital Signs Temp Pulse Resp BP Pulse Ox O2 Del Method 03/04/25 07:41 36.5 C 94 H 16 125/71 96 Room Air Queries Orthopedic Spine Obesity: Yes
[2025-03-05 07:14] LABS: Hematocrit (blood only) 38.8 % (42.0-52.0); Hemoglobin 13.1 g/dl (14.0-18.0); Mean Corpuscular Hemoglobin 30.3 pg (25.0-34.0); Mean Corpuscular Hgb Conc 33.8 g/dL (32.0-36.0); Mean Corpuscular Volume 89.6 fL (80.0-100.0); Mean Platelet Volume 10.1 fL (9.4-12.4); Platelet Count 245 K/uL (130-400); RDW Coefficient of Variation 13.2 % (11.5-14.5); RDW Standard Deviation 43.4 fL (36.4-46.3); Red Blood Count 4.33 M/uL (4.70-6.10); White Blood Count 13.04 K/ul (4.8-10.8)
[2025-03-05 07:44] LABS: BUN Creatinine Ratio 18.6 (10-20); Calcium 8.8 mg/dl (8.6-10.3); Potassium 4.5 mmol/L (3.5-5.1)
--- NOTE | 2025-03-05 08:05 | Hospitalist Progress Note ---
Date of Service March 05, 2025 Assessment & Plan (1) Other spondylosis with radiculopathy, lumbar region: (2) Hypertension: (3) Hyperlipidemia: (4) BPH (benign prostatic hyperplasia): Plan This is a 65yo M who has a significant PMH of PMH of HTN, HLD, GERD, BPH who presented to elective lumbar surgery by Dr. Nicholson on 03/02. Other spondylosis with radiculopathy, lumbar region POD #3 S/P T12-L2 decompression/Fusion surgery under the care of Dr. Nicholson Per ortho for pain control, wound care, anticoagulation and activities Continue incentive spirometry Spontaneously voiding, ambulating independently in [place] Acute blood loss anemia EBL 350mL. Hgb 13.1 today (from 13.3 yesterday; baseline hgb 15.9) Ortho spine monitoring for one more day given ARLEY output- 80 cc overnight BP lower side this AM - 92/52 but asymptomatic, continue to monitor closely Daily CBC while admitted HTN: chronic. BP 92/52 this AM, asymptomatic. Held today's doses of amlodipine, lisinopril, reassess in AM HLD: chronic, stable, continue statin GERD: continue omeprazole Obesity: BMI 36.7, encourage diet/lifestyle measures when able Disposition: PCP: Vikki Ferguson DVT ppx: per primary Code Status: Full code I spent a total of 45 minutes coordinating, documenting, and providing care for this patient excluding time spent in the performance of separately billed services or time spent by another provider/QHP. Admission and Anticipated Discharge Date Admission Date: March 02, 2025 Supervising Physician Co-Signing Physician Notes Patient seen and examined at bedside. Patient doing well today, comfortable. On exam, ARLEY drain still has red output. Downtrending leukocytosis. Stable Hgb and creatinine. POD 3 at this time. Dispo per ortho. Patient medically stable for discharge when ready per ortho. I have seen and discussed the case with the collaborating advanced practitioner. I agree with the above H&P. I have reviewed and confirmed the patients medical history, the findings on physical examination, and the patients diagnosis and treatment plan with Diane Santoro PA-C and agree with the information documented. I spent a total of 20 minutes coordinating, documenting, and providing care for this patient excluding time spent in the performance of separately billed services. All of the aforementioned completed outside of collaborating with the assigned advanced practitioner for a full treatment plan. I have reviewed the advanced practitioner's documentation, and I agree with, and take responsibility for the plan of care Subjective Seen and examined in 363-1. Feeling well today. Ambulating in the [place] this morning with minimal pain. Had 2 bowel movements post-operatively. Tolerating diet without issue. BP lower side this AM but denies lightheadedness, tachycardia, SOB. No F/C, CP, SOB, abd pain, N/V, dysuria. Review of Systems Review of Systems: At least ten systems reviewed and negative except as noted in the HPI. Physical Exam Physical Exam: Gen: WD/WN, NAD, resting in bed comfortably, obese, A&Ox3 HEENT: Normocephalic, atraumatic, conjunctivae moist, sclerae anicteric, mucous membranes moist Lung: Clear to Auscultation bilaterally Heart: Regular rate, regular rhythm Abdomen: Soft, NT, ND +BS x 4 Extremities: + Spinal dressing c/d/i, ARLEY drain visualized Skin: Warm, no rash Results & Data Results & Data Vital Signs (Past 12 Hours) Vital Signs Temp Pulse Resp BP Pulse Ox O2 Del Method 03/05/25 07:16 36.8 C 80 16 92/52 L 97 Room Air Laboratory Results Short CBC 03/05/25 Range/Units 06:39 WBC 13.04 H (4.8-10.8) K/ul Hgb 13.1 L (14.0-18.0) g/dl Hct 38.8 L (42.0-52.0) % Plt Count 245 (130-400) K/uL BMP 03/05/25 06:39 Sodium 136 Potassium 4.5 Chloride 103 Carbon Dioxide 28 BUN 22 Creatinine 1.18 Glucose 103 H Calcium 8.8 Diagnostic Findings Lumbar Spine X-Ray 03/02/25 11:55 FL lumbar spine 2-3V CLINICAL HISTORY: L1-L2 DECOMPRESSION AND EXTENSION OF FUSION COMPARISON STUDY: None FLUOROSCOPY TIME: 23 seconds FLUOROSCOPY IMAGES: 3 EXPOSURE DOSE: 21 mGy FINDINGS: Fluoroscopy was provided for lumbar fusion. IMPRESSION: Intraoperative fluoroscopy. ACT 112: Negative or not required by law. Electronically signed by: Enrrique Garg M.D. 03/02/2025 2:28 PM
--- NOTE | 2025-03-05 08:41 | Orthopedic Progress Note ---
Date of Service March 05, 2025 Assessment & Plan (1) Other spondylosis with radiculopathy, lumbar region: Plan: Gerard is postoperative day 3 status post L1-2 decompression and fusion. Will continue with ambulation and physical therapy. Maintain ARLEY drain due to high output. Continue with pain control. Continue with aggressive bowel regimen. DVT prophylaxis is in the form of teds and SCDs. Anticipate discharge home tomorrow Admission and Anticipated Discharge Date Admission Date: March 02, 2025 Subjective Gerard is postoperative day 3 status post L1-2 decompression and fusion. He had a bowel movement. Pain is controlled. ARLEY drain output last shift was 80 cc. Yesterday in physical therapy Ambulating 225 feet.. H&H this morning are 13.1 and 38.8 respectively. No other complaints. Review of Systems Review of Systems: All systems reviewed & are unremarkable except as noted in HPI & below Physical Exam Physical Exam: He is sitting in his chair no acute distress alert and oriented x 3 strength is intact bilateral lower extremities Dressing is clean dry intact with functioning ARLEY drain Results & Data Vital Signs (Past 12 Hours) Vital Signs Temp Pulse Resp BP Pulse Ox O2 Del Method 03/05/25 07:16 36.8 C 80 16 92/52 L 97 Room Air Queries Orthopedic Spine Obesity: Yes
--- NOTE | 2025-03-06 07:17 | Hospitalist Progress Note ---
Date of Service March 06, 2025 Assessment & Plan (1) Other spondylosis with radiculopathy, lumbar region: (2) Hypertension: (3) Hyperlipidemia: (4) BPH (benign prostatic hyperplasia): Plan This is a 65yo M who has a significant PMH of PMH of HTN, HLD, GERD, BPH who presented to elective lumbar surgery by Dr. Nicholson on 03/02. Other spondylosis with radiculopathy, lumbar region POD #4 S/P T12-L2 decompression/Fusion surgery under the care of Dr. Nicholson Per ortho for pain control, wound care, anticoagulation and activities Continue incentive spirometry Spontaneously voiding, ambulating independently in [place] Acute blood loss anemia EBL 350mL. Hgb stable at 13.6 (from 13.1 yesterday; baseline hgb 15.9) BP normalized since yesterday, continues to be asymptomatic Daily CBC while admitted HTN: Chronic. Resumed amlodipine, lisinopril this AM HLD: Chronic, stable, continue statin GERD: Continue omeprazole Obesity: BMI 36.7, encourage diet/lifestyle measures when able Disposition: PCP: Vikki Ferguson DVT ppx: per primary Code Status: Full code Dispo: Primary service to discharge today I spent a total of 40 minutes coordinating, documenting, and providing care for this patient excluding time spent in the performance of separately billed services or time spent by another provider/QHP. Admission and Anticipated Discharge Date Admission Date: March 02, 2025 Supervising Physician Co-Signing Physician Notes Patient seen and examined at bedside. Patient doing well today, looking forward to going home. On exam, ARLEY drain output significantly decreased from prior. Patient medically stable for discharge from medicine perspective. I have seen and discussed the case with the collaborating advanced practitioner. I agree with the above H&P. I have reviewed and confirmed the patients medical history, the findings on physical examination, and the patients diagnosis and treatment plan with Diane Santoro PA-C and agree with the information documented. I spent a total of 15 minutes coordinating, documenting, and providing care for this patient excluding time spent in the performance of separately billed services. All of the aforementioned completed outside of collaborating with the assigned advanced practitioner for a full treatment plan. I have reviewed the advanced practitioner's documentation, and I agree with, and take responsibility for the plan of care Subjective Seen and examined in 363-1. Feeling well today. Continues to ambulate without issue. Pain is controlled. Minimal ARLEY drain output overnight. BP normalized this AM, able to take his home meds. No F/C, CP, SOB, abd pain, N/V, dysuria. Having bowel movements post-operatively. Review of Systems Review of Systems: At least ten systems reviewed and negative except as noted in the HPI. Physical Exam Physical Exam: Gen: WD/WN, NAD, resting in bed comfortably, obese, A&Ox3 HEENT: Normocephalic, atraumatic, conjunctivae moist, sclerae anicteric, mucous membranes moist Lung: Clear to Auscultation bilaterally Heart: Regular rate, regular rhythm Abdomen: Soft, NT, ND +BS x 4 Extremities: + Spinal dressing c/d/i, ARLEY drain visualized with minimal output Skin: Warm, no rash Results & Data Results & Data Vital Signs (Past 12 Hours) Vital Signs Temp Pulse Resp BP Pulse Ox O2 Del Method 03/05/25 20:08 36.7 C 84 18 145/82 H 95 Room Air Laboratory Results Short CBC 03/06/25 Range/Units 07:06 WBC 12.96 H (4.8-10.8) K/ul Hgb 13.6 L (14.0-18.0) g/dl Hct 39.3 L (42.0-52.0) % Plt Count 289 (130-400) K/uL BMP 03/06/25 07:06 Sodium 137 Potassium 4.6 Chloride 104 Carbon Dioxide 26 BUN 27 H Creatinine 1.15 Glucose 108 H Calcium 9.0 Diagnostic Findings Lumbar Spine X-Ray 03/02/25 11:55 FL lumbar spine 2-3V CLINICAL HISTORY: L1-L2 DECOMPRESSION AND EXTENSION OF FUSION COMPARISON STUDY: None FLUOROSCOPY TIME: 23 seconds FLUOROSCOPY IMAGES: 3 EXPOSURE DOSE: 21 mGy FINDINGS: Fluoroscopy was provided for lumbar fusion. IMPRESSION: Intraoperative fluoroscopy. ACT 112: Negative or not required by law. Electronically signed by: Enrrique Garg M.D. 03/02/2025 2:28 PM
[2025-03-06 07:27] LABS: Hematocrit (blood only) 39.3 % (42.0-52.0); Hemoglobin 13.6 g/dl (14.0-18.0); Mean Corpuscular Hemoglobin 30.1 pg (25.0-34.0); Mean Corpuscular Hgb Conc 34.6 g/dL (32.0-36.0); Mean Corpuscular Volume 86.9 fL (80.0-100.0); Mean Platelet Volume 9.8 fL (9.4-12.4); Platelet Count 289 K/uL (130-400); RDW Coefficient of Variation 13.2 % (11.5-14.5); RDW Standard Deviation 41.3 fL (36.4-46.3); Red Blood Count 4.52 M/uL (4.70-6.10); White Blood Count 12.96 K/ul (4.8-10.8)
[2025-03-06 07:36] VITALS: RESP 16; TEMP 98.6; O2SAT 97
[2025-03-06 07:43] LABS: BUN Creatinine Ratio 23.5 (10-20); Creatinine Clr Calc Pharmacy 84.1 ml/min; Potassium 4.6 mmol/L (3.5-5.1)
[2025-03-06 08:21] VITALS: PULSE 88
--- NOTE | 2025-03-06 09:15 | Discharge Summary ---
Date of Service March 06, 2025 Admission HPI Per Admitting Provider This is a 65-year-old male who presents chronic persistent back and leg pain after failing course of nonoperative care is here for surgical intervention. Admission Exam (Per Admitting) Constitutional WD/WN, vitals as above Eyes normal visual mcneal by confrontation ENMT external ear and nose normal, oropharynx normal Neck normal visual inspection Respiratory normal respiratory effort Cardiovascular Extremities: normal capillary refill Gastrointestinal (Abdomen) Inspection/Auscultation: abdomen normal to inspection Musculoskeletal Spine: + pain with thoraco-lumbar ROM Extremities: extremities normal to inspection and strength 5/5 throughout Skin no rashes, warm and dry Neurologic normal touch/pain/proprioception and moves all extremities Psychiatric A+Ox3, euthymic affect Eye Contact: good eye contact Discharge Data Consultations 03/02/25 16:04 Consult Hospitalist Routine Procedures Performed Operation Date: 03/02/25 11:55 Actual Procedures p L1-L2 Decompression with Extension of Fusion From T12-L2, with Spinal Cord Monitoring(Not Applicable) - Franck Nicholson, Hospital Course (1) Other spondylosis with radiculopathy, lumbar region: Gerard is being discharged home on postoperative day 4 status post T12-L2 decompression and fusion. Leg pain has resolved. Back pain is controlled. Biggest complaint is hiccups. It only seems to be when he eats. ARLEY drain output last shift is 15 cc. He is had a bowel movement. He is ambulating several 100 feet in physical therapy plus the hallways. Discharge Instructions ACTIVITY RECOMMENDATIONS: SELF CARE INSTRUCTIONS AFTER THORACIC/LUMBAR FUSIONS 1. You may walk to your tolerance. It is good exercise for your legs and back. Expect some back and intermittent leg aches and pains. 2. You may perform "counter-top" level activities (make a sandwich, floyd with a project, etc.). 3. No bending or lifting of more than 10 pounds or back twisting of any nature (roll like a log when turning in bed). 4. You may ride in a car for 20-30 minutes at a time. No driving until after your first visit with your doctor. 5. Frequent changes of position and restricting sitting to 30 minutes at a time will help limit the amount of back spasms and stiffness you may experience. 6. You may discontinue the use of ambulatory aids (cane, crutches, etc.) once your strength and confidence allow. 7. You may imaging specialist the shower and let water strike your incision when you arrive home at least once daily. Do not take a tub bath, sit in a hot tub or go into a swimming pool until after your first recheck in the office. 8. You may resume previous diet. SPECIAL CARE INSTRUCTIONS: VERY IMPORTANT TO READ AND REVIEW A. Your surgical incision has been closed with a cosmetic suture under the skin that will dissolve in about 6 weeks. In 14 days, you can use a pair of clean scissors and cut the suture that is left outside of the skin at the ends of your incision. 1. The small skin tapes can be removed 7 days after surgery if they have not fallen off by that point. 2. You may keep the wound open to air as much as possible to promote healing after post-op day number 5 unless told otherwise by your doctor. 3. If you think the wound looks like it is becoming infected (redness or worsening drainage) and/or you are experiencing fever, chill or worsening back pain and muscle spasms, contact the office so that we may evaluate you as soon as possible. B. Complications are uncommon, but please contact us if you have any signs or symptoms of: 1. wound infection (fever higher than 102.5 degrees F, redness, separation of wound, drainage, or increasing pain from the incision) 2. blood clots in legs (pain, swelling, redness and warmth in legs) 3. urinary tract infection (fever higher than 102.5 degrees F, burning upon urination or increased frequency of urination) 4. nerve problems (inability to walk on your toes or heels, numbness, loss of bowel or bladder control) 5. any other symptoms that concern you C. Please call the office at if you have any concerns or questions about your operation or recovery. D. No smoking! Smoking drastically decreases the chance of a solid fusion. E. Do not take any anti-inflammatory medications (Indocin, Advil, Motrin, Aspirin, Naprosyn, etc.) as these may inhibit the chance of a solid fusion. Tylenol is okay to take for pain. MANAGING PAIN AFTER SPINAL SURGERY 1. Narcotic medication is intended for short-term use and will be provided for surgical pain. Surgical pain usually lasts for a period of 4-6 weeks. Narcotic medication includes Percocet, Vicodin, Darvocet, Tylenol #3 or Lortab. 2. Longer-term pain is more appropriately treated with non-narcotic medication such as Tylenol ES. 3. Muscle spasm is not appropriately treated with narcotics. Muscle relaxers such as Soma, Flexeril or Skelaxin can be used along with Tylenol ES. 4. Remember that we all live with some "aches and pains". This is not unusual or uncommon after an injury or as we get older. a. Back pain is expected and may include muscle spasms for 4 to 6 weeks after surgery. The pain should gradually improve. If the pain worsens for no apparent reason, please contact the office. b. Intermittent leg pain may also be experienced and should not be concerned about unless it worsens for no apparent reason. If so, please contact the office. 5. We will provide appropriate medication within the normal guidelines of their prescribed use. We will also be very cautious and aware of potential abuse and extended duration of patients' medication needs. a. Pain medications are for your comfort and to assist with sleep and rest so that the tissue can heal. They are not provided in order to return to normal activity and should not be used through the day. To do so or worsening pain at night can result from ongoing tissue damage and development of tolerance to the prescribed medicine. 6. Please allow 2-3 days to process refills. Prescriptions will not be mailed but must be picked up at the office. FOLLOW UP VISIT: Keep your scheduled follow-up appointment. Any questions, please call the office at .
[2025-03-06 09:27] VITALS: BP 154/83
== END 2025-03-06 13:27 | disposition home or self-care (01) ==
LOC: ASU 10:34 → 3W 13:57